=== PATIENT | female | born 1970 | race Caucasian/White ===

== ENCOUNTER 2017-08-04 11:05 | Observation (INO) | payer MEDICAID, SELFPAY ==
[2017-08-04] VITALS (11 sets, daily range): BP systolic 115–130; BP diastolic 70–95; PULSE 66–80; RESP 14–22; TEMP 36.5–36.8; O2SAT 97–99; BMI 36.6; BMI 35.7; BMI 35.8
--- NOTE | 2017-08-04 11:18 | EKG12_ITS ---
Test Reason : CHEST PAIN Blood Pressure : / mmHG Vent. Rate : 070 BPM Atrial Rate : 070 BPM P-R Int : 158 ms QRS Dur : 090 ms QT Int : 378 ms P-R-T Axes : 055 055 022 degrees QTc Int : 408 ms Normal sinus rhythm Normal ECG Confirmed by ROSALEE RODRIGUEZ, DOUGIE ([id number]), marketing editor KAYCEE GARCIA ([id number] on 08/10/2017 1:36:41 PM Referred By: AR/RU Confirmed By:DOUGIE TURK MD
--- NOTE | 2017-08-04 11:26 | RAD_ITS ---
STUDY: X-RAY CHEST REASON FOR EXAM: Female, 47 years old. Chest pain. TECHNIQUE: Single AP portable view of the chest. COMPARISON: Comparison is made with prior study dated December 02, 2015. FINDINGS: A right-sided portacatheter is seen with the tip at the junction of the superior vena cava and right atrium. EKG electrodes are seen. The lungs are clear and expanded. Scattered calcified granulomas. There is no demonstrated pleural abnormality. Normal size heart. Normal mediastinum and humberto. Normal visualized pulmonary arteries. Normal visualized aortic arch and descending thoracic aorta. Normal visualized thoracic spine. Normal visualized ribs, clavicles, and shoulders. There is no demonstrated abnormality of the visualized soft tissue structures of the upper abdomen. RAD/Chest 1 View (Portable) IMPRESSION: No acute abnormality is seen. Electronically Signed: Dalton Michel MD at 12:24 EDT Tel [phone], Service support ,
[2017-08-04 11:47] LABS: Absolute Lymphocyte Count 1.46 X10^3/ul (0.83-4.51); Absolute Neutrophil Count 2.7 X10^3/uL (2.0-7.7); Basophil# 0.02 X10^3/uL; Basophil% 0.4 % (0-1); Eosinophils% 2.2 % (0-5); Hematocrit 37.5 % (37-47); Hemoglobin 12.5 g/dl (12.0-15.0); Lymphocyte # 1.46 X10^3/ul (4.0); Lymphocyte % 32.5 % (19-41); Mean Corp Hgb Conc 33.3 g/gl (32-36); Mean Corpuscular Hgb 29.8 pg (27.0-32.0); Mean Corpuscular Volume 89.5 fL (81-99); Mean Platelet Vol. 10.5 fl (6.2-12.0); Monocyte# 0.22 X10^3/uL; Monocyte% 4.9 % (0-10); Neutrophil # 2.69 X10^3/uL (2.7-7.7); Platelet Count 159 K/mm3 (150-450); RBC Distribution Width CV 13.2 % (11.6-14.6); Red Blood Count 4.19 M/mm3 (4.2-5.4); White Blood Count 4.5 K/mm3 (4.4-11.0)
[2017-08-04 11:49] LABS: POSITIVE COUNT NO; POSITIVE DIFFERENTIAL NO; POSITIVE MORPHOLOGY NO
[2017-08-04 11:57] LABS: D-Dimer Quantitative (DVT/PE) 0.49 FEU/ug/m (0.27-0.49)
[2017-08-04 12:07] LABS: Anion Gap 4 (5-15); BUN 15 mg/dL (7-18); BUN/Creat Ratio 22.1 RATIO (10-20); Calcium,Total 8.7 mg/dL (8.5-10.1); Chloride 109 mmol/L (98-107); Creatinine, Serum 0.68 mg/dL (0.55-1.02); EST Glomerular Filtration Rate 99 mL/min (>60); Est Glom Filt Rate - Afr Amer 120 mL/min (>60); Estimated Creatinine Clearance 89.27 ml/min; Glucose 97 mg/dL (74-106); Potassium 3.6 mmol/L (3.5-5.1); Sodium Level 139 mmol/L (136-145)
--- NOTE | 2017-08-04 12:19 | ED.DCSUM_ITS ---
- ER Visit Summary Date of Service: 08/04/17 Chief Complaint: [Chest pain] History of Present Illness: The patient is a 47 F [presents to the emergency department chest discomfort that started around 10 AM. Patient described a stabbing pain in her left chest with some dullness and heaviness noted with it. Patient states the pain radiated to her left armpit and her left hand became numb and tingly. Patient felt short of breath and very sweaty with it. Patient has a history of hypertension and significant family history of heart disease as her father had an PR in his 50s. Patient denies recent travel or surgery. Physical Examination: [HEENT-PERRLA, EOMI. Cranial nerves II through XII grossly intact. TMs clear. Mucous membranes moist. No adenopathy. Cardiovascular-regular rate and rhythm without murmur or ectopy Lungs-clear to auscultation, chest wall stable without crepitus or subcu emphysema Abdomen-normoactive bowel sounds, soft, nontender, no rebound or rigidity, no peritoneal signs. Extremities-intact ?4, normal range of motion, normal pulses, atraumatic] Test Results: [EKG obtained on arrival showed a sinus rhythm with a ventricular rate of 70 bpm with no acute ST segment changes. CBC with differential was normal. Chemistries unremarkable. Troponin was less than 0.015. D-dimer was normal at 0.49. Chest x-ray showed nothing acute.] Emergency Department Course and Treatment: [Patient received aspirin in the emergency department and was given sublingual nitro which resolved her pain.] Treatment Plan: [Admit for further workup and evaluation of her chest pain] Disposition: [Admit] Impression: [Chest pain-rule out acute coronary syndrome] This note was generated with [email or web address] dictation software. It may contain incorrect words, spelling, and punctuation that were not noted in review of the chart prior to signing ED Disposition - Plan for ED Patient: Chief Complaint: Chest Pain Referrals: Cam Crane MD [Primary Care Provider] -
[2017-08-04] MEDS: Aspirin 81 MG TAB.CHEW 324 MG PO (12:37)
[2017-08-04] MEDS: 0.9% Normal Saline 1,000 ML 150 ML IV (12:38)
[2017-08-04] MEDS: 0.9 % NaCl (Sterile) Posiflush 10 mL IV (12:38)
--- NOTE | 2017-08-04 13:14 | PCM.HP.STD ---
Problem List (1) Chest pain Status: Acute Qualifiers: Chest pain type: unspecified Qualified Code(s): R07.9 - Chest pain, unspecified (2) Obesity (BMI 30-39.9) Status: Chronic (3) Tobacco abuse Status: Chronic (4) HTN (hypertension) Status: Chronic Qualifiers: Hypertension type: essential hypertension Qualified Code(s): I10 - Essential (primary) hypertension (5) HLD (hyperlipidemia) Status: Chronic Qualifiers: Hyperlipidemia type: unspecified Qualified Code(s): E78.5 - Hyperlipidemia, unspecified (6) Hemochromatosis Status: Chronic Qualifiers: Hemochromatosis type: unspecified Qualified Code(s): E83.119 - Hemochromatosis, unspecified History of Present Illness Date of Admission: 08/04/17 Chief Complaint: Chest pain The patient is a 47 y/o F w/ PMHx: HTN, HLD, Obesity, Tobacco use, Hemochromatosis who presents to the [facility] ED on 08/04/17 with onset of upper left sided chest dull ache and intermittent sharp stab sensation occurring at ~ 10 am while at work at the [employer] (no marked recent heavy exertion or lifting noted) with radiation into her armpit and LUE w/ LUE paresthesias, dyspnea, diaphoresis, nausea without emesis initially 5-7/10, resolved w/ NG administration. In the ED work-up included afebrile, heart rate 70, BP 124/88, respiratory rate 14, 99% on room air, unremarkable CBC with hemoglobin 12.5, d-dimer 0.49, BMP unremarkable, troponin less than 0.015, EKG with sinus rhythm with no acute evidence of ischemia, chest x-ray unremarkable. In the emergency room patient administered nitroglycerin, aspirin therapy, normal saline. Past Medical History Past Medical History (Chronic Problems): Chronic Problems Obesity (BMI 30-39.9) (Chronic) Tobacco abuse (Chronic) HTN (hypertension) (Chronic) HLD (hyperlipidemia) (Chronic) Hemochromatosis (Chronic) Allergies No Known Allergies Allergy (Verified 08/04/17 11:08) Home Medications: Ambulatory Orders Medication Instructions Recorded Ondansetron [Zofran Odt] 4 mg PO Q6H PRN PRN #15 tablet 12/02/15 Surgical History: - - Port placement. Psychiatric History: No pertinent psych hx IRON BENDER History: No pertinent IRON BENDER history Lives: Spouse/ Significant Other Smoking Status: Current every day smoker - 1/3-1/2 pack per day, cut down from prior. Tobacco Use: Cigarettes Alcohol: None Drugs: Marijuana - Rare, occasional cannabis. Review of Systems Constitutional: Reports: Fatigue. Denies: Chills, Fever, Weight Change HEENT: Denies: Head Aches, Sinus Congestion, Sinus Drainage Cardiovascular: Reports: Chest Pain. Denies: Palpitations Respiratory: Reports: Shortness of Breath, Shortness of breath at rest, Shortness of breath upon exertion. Denies: Cough, Sputum production Gastrointestinal: Reports: Nausea. Denies: Abdominal Pain, Vomiting Genitourinary: Denies: Dysuria Musculoskeletal: Denies: Joint Pain, Joint Tenderness Skin: Denies: Rash, Wounds Neurological: Denies: Numbness, Tingling, Focal weakness Psychiatric: Denies: Anxiety, Depression, Homicidal Ideations, Suicidal Ideations Hematologic/ Lymphatic: Reports: - - Hx hemochromatosis.. Denies: Easy Bruising, Easy Bleeding VTE Information - Inpt Only VTE Present on Admission: No VTE Mechan Device Prophylaxis: SCD's VTE Pharm Prophylaxis ordered?: Yes Patient Problems: Active and Suspected Problems Chest pain (Acute) Subjective: Seated upright in the ED bed, NAD, chest pain resolved, fatigued appearance. Objective: Physical Examination: General: awake, alert, oriented x 3 and cooperative, seated upright in the ED bed in no apparent distress. Skin: normal color, turgor, no icterus, cyanosis. HEENT: AT/NC, EOMI, PERRLA, mildly dry MM, no carotid bruits or JVD noted. Lungs: CTA bilaterally, moderate effort, mild decrease BL bases, no rales, ronchi or wheezing. Heart: Regular rate and rhythm; no gallop, rub audible. Abdomen: soft, obese, NTTP, ND, normal BS, no HSM. Extremities: no cyanosis, clubbing, or edema, RLE w/ brace in place, recent PCL injury s/p fall. Neurological: patient awake, alert, oriented x 3; cognitive function intact; pupils equally reactive to light and accomodation; cranial nerves II-XII grossly normal, moving all 4 extremities although expected limitations RLE s/p fall w/ PCL injury and brace in place, strength moderately globally decreased. Psychiatric: affect appears normal, no acute evidence of depressive or anxiety feelings. - Physical Exam Vital Signs Temp Pulse Resp BP Pulse Ox 98.2 F 75 14 119/95 H 99 08/04/17 11:06 08/04/17 12:47 08/04/17 12:47 08/04/17 12:47 08/04/17 12:47 Oxygen Delivery Method Room Air Weight: 213 lb 6.519 oz Body Mass Index (BMI) 36.6 Laboratory Tests Past 24 Hrs 08/04/17 08/04/17 08/04/17 11:40 11:40 11:40 WBC 4.5 RBC 4.19 L Hgb 12.5 Hct 37.5 MCV 89.5 MCH 29.8 MCHC 33.3 RDW 13.2 RDW Differential 43.0 Plt Count 159 MPV 10.5 Immature Gran % (Auto) 0.000 Neut % (Auto) 60.0 Lymph % (Auto) 32.5 [place] % (Auto) 4.9 Eos % (Auto) 2.2 Baso % (Auto) 0.4 Absolute Neuts (auto) 2.7 Absolute Lymphs (auto) 1.46 Total Counted Not Reportable D-Dimer Quant (PE/DVT) 0.49 Sodium 139 Potassium 3.6 Chloride 109 H Carbon Dioxide 26.0 Anion Gap 4 L BUN 15 Creatinine 0.68 Estim Creat Clear Calc 89.27 Est GFR (MDRD) Af Amer 120 Est GFR (MDRD) Non-Af 99 BUN/Creatinine Ratio 22.1 H Glucose 97 Calcium 8.7 Troponin I < 0.015 Assessment/Plan Active and Suspected Problems Chest pain (Acute) The patient is a 47 y/o F w/ PMHx: HTN, HLD, Obesity, Tobacco use, Hemochromatosis who presents to the [facility] ED on 08/04/17 with onset of upper left sided chest dull ache and intermittent sharp stab sensation occurring at ~ 10 am while at work at the [employer] with radiation into her armpit and LUE w/ LUE paresthesias, dyspnea, diaphoresis, nausea without emesis initially 5-7/10, resolved w/ NG administration. (1) Chest Pain: EKG in ED sinus rhythm with no acute evidence of ischemia, CXR w/ no acute findings, initial trop normal ?1. Will admit to PCU, place on a monitored bed to assure no acute myocardial infarction with serial cardiac enzymes and EKGs. Patient is unable to perform exercise thus will proceed with AM nuclear stress testing. ASA, NG, morphine. FLP in AM. Mag pending. (2) Hypertension: No regimen listed, BP normal in the ED, will monitor and add agent if above goal, PRN hydralazine. (3) Hyperlipidemia: Not on regimen. AM FLP, add if appropriate. (4) Morbid Obesity: Weight loss and lifestyle changes encouraged. (5) Tobacco Abuse: Encouraged cessation, inpatient consultation per RT, NR if desired. Patient is interested in long-term cessation and notes that she has been attempting to cut back as her recently had a CABG. (6) Hemochromatosis: Port in place, chronic blood draws, following w/ Dr. Moscoso, Hem/Onc. (7) Recent Fall, RLE PCL Injury: Recent fall on 07/01/17, following w/ Orthopedics, maintained in brace, full weight bearing allowed. (8) DVT prophylaxis: SCDs, lovenox. Code Visit OBSV E&M: 97556 Initial observation care L3
--- NOTE | 2017-08-04 13:31 | HP.PCM_ITS ---
Problem List (1) Chest pain Status: Acute Qualifiers: Chest pain type: unspecified Qualified Code(s): R07.9 - Chest pain, unspecified (2) Obesity (BMI 30-39.9) Status: Chronic (3) Tobacco abuse Status: Chronic (4) HTN (hypertension) Status: Chronic Qualifiers: Hypertension type: essential hypertension Qualified Code(s): I10 - Essential (primary) hypertension (5) HLD (hyperlipidemia) Status: Chronic Qualifiers: Hyperlipidemia type: unspecified Qualified Code(s): E78.5 - Hyperlipidemia , unspecified (6) Hemochromatosis Status: Chronic Qualifiers: Hemochromatosis type: unspecified Qualified Code(s): E83.119 - Hemochromatosis, unspecified History of Present Illness Date of Admission: 08/04/17 Chief Complaint: Chest pain The patient is a 47 y/o F w/ PMHx: HTN, HLD, Obesity, Tobacco use, Hemochromatosis who presents to the [facility] ED on 08/04/17 with onset of upper left sided chest dull ache and intermittent sharp stab sensation occurring at ~ 10 am while at work at the [employer] (no marked recent heavy exertion or lifting noted) with radiation into her armpit and LUE w/ LUE paresthesias, dyspnea, diaphoresis, nausea without emesis initially 5-7/10, resolved w/ NG administration. In the ED work-up included afebrile, heart rate 70, BP 124/88, respiratory rate 14, 99% on room air, unremarkable CBC with hemoglobin 12.5, d- dimer 0.49, BMP unremarkable, troponin less than 0.015, EKG with sinus rhythm with no acute evidence of ischemia, chest x-ray unremarkable. In the emergency room patient administered nitroglycerin, aspirin therapy, normal saline. Past Medical History Past Medical History (Chronic Problems): Chronic Problems Obesity (BMI 30-39.9) (Chronic) Tobacco abuse (Chronic) HTN (hypertension) (Chronic) HLD (hyperlipidemia) (Chronic) Hemochromatosis (Chronic) Allergies No Known Allergies Allergy (Verified 08/04/17 11:08) Home Medications: Ambulatory Orders Medication Instructions Recorded Ondansetron [Zofran Odt] 4 mg PO Q6H PRN PRN #15 tablet 12/02/15 Surgical History: - - Port placement. Psychiatric History: No pertinent psych hx EDUCATIONAL AIDE History: No pertinent EDUCATIONAL AIDE history Lives: Spouse/ Significant Other Smoking Status: Current every day smoker - 1/3-1/2 pack per day, cut down from prior. Tobacco Use: Cigarettes Alcohol: None Drugs: Marijuana - Rare, occasional cannabis. Review of Systems Constitutional: Reports: Fatigue. Denies: Chills, Fever, Weight Change HEENT: Denies: Head Aches, Sinus Congestion, Sinus Drainage Cardiovascular: Reports: Chest Pain. Denies: Palpitations Respiratory: Reports: Shortness of Breath, Shortness of breath at rest, Shortness of breath upon exertion. Denies: Cough, Sputum production Gastrointestinal: Reports: Nausea. Denies: Abdominal Pain, Vomiting Genitourinary: Denies: Dysuria Musculoskeletal: Denies: Joint Pain, Joint Tenderness Skin: Denies: Rash, Wounds Neurological: Denies: Numbness, Tingling, Focal weakness Psychiatric: Denies: Anxiety, Depression, Homicidal Ideations, Suicidal Ideations Hematologic/ Lymphatic: Reports: - - Hx hemochromatosis.. Denies: Easy Bruising , Easy Bleeding VTE Information - Inpt Only VTE Present on Admission: No VTE Mechan Device Prophylaxis: SCD's VTE Pharm Prophylaxis ordered?: Yes Patient Problems: Active and Suspected Problems Chest pain (Acute) Subjective: Seated upright in the ED bed, NAD, chest pain resolved, fatigued appearance. Objective: Physical Examination: General: awake, alert, oriented x 3 and cooperative, seated upright in the ED bed in no apparent distress. Skin: normal color, turgor, no icterus, cyanosis. HEENT: AT/NC, EOMI, PERRLA, mildly dry MM, no carotid bruits or JVD noted. Lungs: CTA bilaterally, moderate effort, mild decrease BL bases, no rales, ronchi or wheezing. Heart: Regular rate and rhythm; no gallop, rub audible. Abdomen: soft, obese, NTTP, ND, normal BS, no HSM. Extremities: no cyanosis, clubbing, or edema, RLE w/ brace in place, recent PCL injury s/p fall. Neurological: patient awake, alert, oriented x 3; cognitive function intact; pupils equally reactive to light and accomodation; cranial nerves II-XII grossly normal, moving all 4 extremities although expected limitations RLE s/p fall w/ PCL injury and brace in place, strength moderately globally decreased. Psychiatric: affect appears normal, no acute evidence of depressive or anxiety feelings. - Physical Exam Vital Signs Temp Pulse Resp BP Pulse Ox 98.2 F 75 14 119/95 H 99 08/04/17 11:06 08/04/17 12:47 08/04/17 12:47 08/04/17 12:47 08/04/17 12:47 Oxygen Delivery Method Room Air Weight: 213 lb 6.519 oz Body Mass Index (BMI) 36.6 Laboratory Tests Past 24 Hrs 08/04/17 08/04/17 08/04/17 11:40 11:40 11:40 WBC 4.5 RBC 4.19 L Hgb 12.5 Hct 37.5 MCV 89.5 MCH 29.8 MCHC 33.3 RDW 13.2 RDW Differential 43.0 Plt Count 159 MPV 10.5 Immature Gran % (Auto) 0.000 Neut % (Auto) 60.0 Lymph % (Auto) 32.5 [place] % (Auto) 4.9 Eos % (Auto) 2.2 Baso % (Auto) 0.4 Absolute Neuts (auto) 2.7 Absolute Lymphs (auto) 1.46 Total Counted Not Reportable D-Dimer Quant (PE/DVT) 0.49 Sodium 139 Potassium 3.6 Chloride 109 H Carbon Dioxide 26.0 Anion Gap 4 L BUN 15 Creatinine 0.68 Estim Creat Clear Calc 89.27 Est GFR (MDRD) Af Amer 120 Est GFR (MDRD) Non-Af 99 BUN/Creatinine Ratio 22.1 H Glucose 97 Calcium 8.7 Troponin I < 0.015 Assessment/Plan Active and Suspected Problems Chest pain (Acute) The patient is a 47 y/o F w/ PMHx: HTN, HLD, Obesity, Tobacco use, Hemochromatosis who presents to the [facility] ED on 08/04/17 with onset of upper left sided chest dull ache and intermittent sharp stab sensation occurring at ~ 10 am while at work at the [employer] with radiation into her armpit and LUE w/ LUE paresthesias, dyspnea, diaphoresis, nausea without emesis initially 5-7/10, resolved w/ NG administration. (1) Chest Pain: EKG in ED sinus rhythm with no acute evidence of ischemia, CXR w / no acute findings, initial trop normal ?1. Will admit to PCU, place on a monitored bed to assure no acute myocardial infarction with serial cardiac enzymes and EKGs. Patient is unable to perform exercise thus will proceed with AM nuclear stress testing. ASA, NG, morphine. FLP in AM. Mag pending. (2) Hypertension: No regimen listed, BP normal in the ED, will monitor and add agent if above goal, PRN hydralazine. (3) Hyperlipidemia: Not on regimen. AM FLP, add if appropriate. (4) Morbid Obesity: Weight loss and lifestyle changes encouraged. (5) Tobacco Abuse: Encouraged cessation, inpatient consultation per RT, NR if desired. Patient is interested in long-term cessation and notes that she has been attempting to cut back as her recently had a CABG. (6) Hemochromatosis: Port in place, chronic blood draws, following w/ Dr. Moscoso, Hem/Onc. (7) Recent Fall, RLE PCL Injury: Recent fall on 07/01/17, following w/ Orthopedics, maintained in brace, full weight bearing allowed. (8) DVT prophylaxis: SCDs, lovenox. Code Visit OBSV E&M: [id number] Initial observation care L3
--- NOTE | 2017-08-04 13:57 | EKG12_ITS ---
Test Reason : ADMISSION Blood Pressure : / mmHG Vent. Rate : 061 BPM Atrial Rate : 061 BPM P-R Int : 172 ms QRS Dur : 090 ms QT Int : 414 ms P-R-T Axes : 048 054 028 degrees QTc Int : 416 ms Normal sinus rhythm Normal ECG Confirmed by ROSALEE RODRIGUEZ, DOUGIE ([id number]), content editor KAYCEE GARCIA ([id number]) on 08/10/2017 3:21:16 PM Referred By: SANTINO Confirmed By:DOUGIE TURK MD
[2017-08-04 14:14] LABS: Magnesium 1.9 mg/dL (1.6-2.6)
[2017-08-04] MEDS: 0.9% Normal Saline 1,000 ML 100 ML IV (15:57)
[2017-08-04] MEDS: Famotidine 20 MG Tablet PO (21:38)
[2017-08-05] VITALS (7 sets, daily range): BP systolic 118–138; BP diastolic 74–88; PULSE 55–62; RESP 14–16; TEMP 36.2–36.6; O2SAT 96–99
[2017-08-05] MEDS: 0.9% Normal Saline 1,000 ML 100 ML IV (01:57)
[2017-08-05] MEDS: 0.9% NaCl Peripheral Flush Adult/Peds IV (04:40)
[2017-08-05 04:54] LABS: Hematocrit 35.8 % (37-47); Hemoglobin 12.1 g/dl (12.0-15.0); Mean Corp Hgb Conc 33.8 g/gl (32-36); Mean Corpuscular Hgb 30.9 pg (27.0-32.0); Mean Corpuscular Volume 91.6 fL (81-99); Mean Platelet Vol. 10.7 fl (6.2-12.0); Platelet Count 137 K/mm3 (150-450); RBC Distribution Width CV 12.8 % (11.6-14.6); RBC Distribution Width SD 42.4 fl (35.1-43.9); Red Blood Count 3.91 M/mm3 (4.2-5.4); White Blood Count 3.7 K/mm3 (4.4-11.0)
[2017-08-05 04:58] LABS: Scan Indicated on CBC? Y/N NO
[2017-08-05 05:03] LABS: International Normalized Ratio 1.1; Prothrombin Time (Protime)PT. 13.8 SECONDS (11.7-14.9)
[2017-08-05 05:04] LABS: Partial Thromboplast Time 33.6 Seconds (24.1-36.2)
[2017-08-05 05:08] LABS: Anion Gap 5 (5-15); BUN 13 mg/dL (7-18); BUN/Creat Ratio 23.2 RATIO (10-20); Chloride 111 mmol/L (98-107); Cholesterol 185 mg/dL (200); Creatinine, Serum 0.56 mg/dL (0.55-1.02); EST Glomerular Filtration Rate 124 mL/min (>60); Est Glom Filt Rate - Afr Amer 150 mL/min (>60); Glucose 93 mg/dL (74-106); High Density Lipoprotein 26 mg/dL; Potassium 3.8 mmol/L (3.5-5.1); Sodium Level 142 mmol/L (136-145); Triglycerides 116 mg/dL; Very Low Density Lipoprotein 23 mg/dL (5-40)
[2017-08-05] MEDS: Aspirin E.C. 81 MG Tablet PO (05:38)
--- NOTE | 2017-08-05 05:55 | EKG12_ITS ---
Test Reason : AM EKG Blood Pressure : / mmHG Vent. Rate : 063 BPM Atrial Rate : 063 BPM P-R Int : 156 ms QRS Dur : 092 ms QT Int : 408 ms P-R-T Axes : 056 069 038 degrees QTc Int : 417 ms Normal sinus rhythm Normal ECG Confirmed by ROSALEE RODRIGUEZ, DOUGIE ([id number]), editor at large KAYCEE AGRCIA ([id number] on 08/10/2017 2:53:40 PM Referred By: SANTINO Confirmed By:DOUGIE TURK MD
--- NOTE | 2017-08-05 10:24 | DCINST_ITS ---
- Discharge Diagnoses Current Active Problems: Current Active and Chronic Problems Obesity (BMI 30-39.9) (Chronic) Tobacco abuse (Chronic) HTN (hypertension) (Chronic) HLD (hyperlipidemia) (Chronic) Hemochromatosis (Chronic) Chest pain (Acute) You will use the following diet at home:: Cardiac Discharge Activity: Return to Normal Activity Call your doctor if you observe: Shortness of breath, Dizziness, Fainting spells , Chest pain, Increased palpitations (irregular heartbeat) Allergies/Adverse Reactions: Allergies No Known Allergies Allergy (Verified 08/04/17 11:08) Medications to take at Discharge Folic Acid 1 mg PO DAILY@0800 08/04/17 Lisinopril [Zestril] 10 mg PO DAILY 08/04/17 Omeprazole [Prilosec] 20 mg PO DAILY 08/04/17 Primary Care Physician: Cam Crane MD [Primary Care Provider] - Please follow up with your Primary Care Physician in: 1 Week Proposed Discharge Date: 08/05/17
--- NOTE | 2017-08-05 10:24 | PCM.DC.SUM ---
Discharge Date and Diagnosis Date of Admission: 08/04/17 Date of Discharge: 08/05/17 - Primary Discharge Diagnosis Active and Suspected Problems 1. Musculoskeletal chest pain 2. Hypertension 3. Tobacco abuse 4. Hemochromatosis 5. Obesity - Secondary Discharge Diagnosis Chronic Problems Obesity (BMI 30-39.9) (Chronic) Tobacco abuse (Chronic) HTN (hypertension) (Chronic) HLD (hyperlipidemia) (Chronic) Hemochromatosis (Chronic) Hospital Course and Treatment Imaging Results: Diagnostic Data Chest X-Ray 08/04/17 11:26 IMPRESSION: No acute abnormality is seen. Electronically Signed: Dalton Michel MD at 12:24 EDT Tel [phone], Service support , Operations: None Procedures: Stress test Summary of Care Provided: The patient is a 47 year old F admitted 08/04/17 due to chest pain. She has a past medical history of HTN, HLD, obesity, tobacco dependence, hemochromatosis, GERD. Chest x-ray unremarkable. Troponin negative. EKG without evidence of ischemia. Patient underwent nuclear stress test which was negative for ischemia. Patient has not had further chest pain, left upper extremity pain. 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 Feel chest pain is musculoskeletal in nature. Fasting lipid panel showed cholesterol 185, LDL 136, LDL 23, HDL 26. Recommend further monitoring and follow-up by primary care physician. Other chronic medical conditions as noted above are stable at this time. Smoking cessation was advised. Patient seen exam prior to discharge. Heart rate regular in rhythm, mild bradycardia with a heart rate of 58. No murmur. Lungs clear. Abdomen soft, nontender. Neuro grossly intact. Vital signs stable. Patient stable for discharge home with further follow-up as noted above. This patient was seen by JONI Nath under the supervision of Dr. Guadarrama. Discharge Diet: Low fat/ Low Cholesterol Discharge Activity: Return to Normal Activity Call your doctor if you observe: Shortness of breath, Dizziness, Fainting spells, Chest pain, Increased palpitations (irregular heartbeat) Home Medications: Medications to take at Discharge Folic Acid 1 mg PO DAILY@0800 08/04/17 Lisinopril [Zestril] 10 mg PO DAILY 08/04/17 Omeprazole [Prilosec] 20 mg PO DAILY 08/04/17 Primary Care Physician: Cam Crane MD [Primary Care Provider] - Please follow up with your Primary Care Physician in: 1 Week Disposition: Home Minutes spent on discharge:: 35 Patient Condition:: Stable Medical Necessity - Tobacco Use Smoking Status: Current every day smoker Tobacco Use: Cigarettes Meaningful Use Info Meaningful Use Diagnoses (Choose all that apply): None applicable
--- NOTE | 2017-08-05 10:32 | DS.PCM_ITS ---
Discharge Date and Diagnosis Date of Admission: 08/04/17 Date of Discharge: 08/05/17 - Primary Discharge Diagnosis Active and Suspected Problems 1. Musculoskeletal chest pain 2. Hypertension 3. Tobacco abuse 4. Hemochromatosis 5. Obesity - Secondary Discharge Diagnosis Chronic Problems Obesity (BMI 30-39.9) (Chronic) Tobacco abuse (Chronic) HTN (hypertension) (Chronic) HLD (hyperlipidemia) (Chronic) Hemochromatosis (Chronic) Hospital Course and Treatment Imaging Results: Diagnostic Data Chest X-Ray 08/04/17 11:26 IMPRESSION: No acute abnormality is seen. Electronically Signed: Dalton Michel MD at 12:24 EDT Tel [phone], Service support , Operations: None Procedures: Stress test Summary of Care Provided: The patient is a 47 year old F admitted 08/04/17 due to chest pain. She has a past medical history of HTN, HLD, obesity, tobacco dependence, hemochromatosis, GERD. Chest x-ray unremarkable. Troponin negative. EKG without evidence of ischemia. Patient underwent nuclear stress test which was negative for ischemia. Patient has not had further chest pain, left upper extremity pain. 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 Feel chest pain is musculoskeletal in nature. Fasting lipid panel showed cholesterol 185, LDL 136, LDL 23, HDL 26. Recommend further monitoring and follow-up by primary care physician. Other chronic medical conditions as noted above are stable at this time. Smoking cessation was advised. Patient seen exam prior to discharge. Heart rate regular in rhythm, mild bradycardia with a heart rate of 58. No murmur. Lungs clear. Abdomen soft, nontender. Neuro grossly intact. Vital signs stable. Patient stable for discharge home with further follow-up as noted above. This patient was seen by JONI Nath under the supervision of Dr. Guadarrama. Discharge Diet: Low fat/ Low Cholesterol Discharge Activity: Return to Normal Activity Call your doctor if you observe: Shortness of breath, Dizziness, Fainting spells , Chest pain, Increased palpitations (irregular heartbeat) Home Medications: Medications to take at Discharge Folic Acid 1 mg PO DAILY@0800 08/04/17 Lisinopril [Zestril] 10 mg PO DAILY 08/04/17 Omeprazole [Prilosec] 20 mg PO DAILY 08/04/17 Primary Care Physician: Cam Crane MD [Primary Care Provider] - Please follow up with your Primary Care Physician in: 1 Week Disposition: Home Minutes spent on discharge:: 35 Patient Condition:: Stable Medical Necessity - Tobacco Use Smoking Status: Current every day smoker Tobacco Use: Cigarettes Meaningful Use Info Meaningful Use Diagnoses (Choose all that apply): None applicable
[2017-08-05] MEDS: Famotidine 20 MG Tablet PO (12:15)
--- NOTE | 2017-08-05 12:32 | STRESSREP ---
Stress Test Report Date: 08/05/2017 Procedure: Pharmacologic stress nuclear imaging study Indications: Chest pain Consent: Per the patient Procedure: The patient underwent pharmacologic (Regadenoson) evaluation with a peak heart rate of 86 beats per minute (49 predicted maximal heart rate) and a peak blood pressure of 146/86 mmHg. The baseline ECG demonstrated sinus bradycardia. The peak pharmacologic ECG demonstrated no obvious ECG changes. There were no cardiac dysrhythmias pretest, during pharmacologic infusion, or recovery. There was no complaint of chest discomfort during pharmacologic infusion or recovery. The examination was discontinued secondary to completion of protocol. Impression: 1. Pharmacologic (Regadenoson) evaluation 2. Peak pharmacologic ECG with no obvious ECG changes. 3. No cardiac dysrhythmias pretest, during pharmacologic infusion, or recovery 4. Nuclear images pending Myocardial perfusion imaging study: Technique: The patient was injected with 14.1 millicuries of technetium 99m Cardiolite and subsequently rest SPECT Cardiolite nuclear imaging was obtained in the horizontal long, vertical long, and short axis views. The patient underwent pharmacologic (Regadenoson) evaluation with a peak heart rate of 86 beats per minute (49 % percent predicted maximal heart rate) and a peak blood pressure of 146/86 mmHg. The patient was injected with 44.3 millicuries of technetium 99m Cardiolite and subsequently stress SPECT Cardiolite nuclear imaging was obtained in the horizontal long, vertical long, and short axis views. A gated Cardiolite study at peak stress was obtained. Interpretation: Rest and stress SPECT Cardiolite nuclear imaging status post realignment, normalization, and attenuation correction demonstrate significant extracardiac/gastrointestinal tracer uptake especially near the inferior segments and otherwise appears to demonstrate relative uniform tracer uptake and myocardial perfusion appearing within normal limits. There is end systolic thickening and brightening. The gated Cardiolite study demonstrates myocardial thickening and inward wall motion. The reported LVEF is 62 %. Impression: 1. Rest and stress SPECT Cardiolite nuclear imaging demonstrate relative uniform tracer uptake and myocardial perfusion appearing within normal limits. 2. The gated Cardiolite study reports an LVEF of 62 %. This note was generated with [employer] software. It may contain incorrect words, spelling, and punctuation that were not noted in checking the note before signing.
--- NOTE | 2017-08-05 12:39 | STRESSREP_ITS ---
Stress Test Report Date: 08/05/2017 Procedure: Pharmacologic stress nuclear imaging study Indications: Chest pain Consent: Per the patient Procedure: The patient underwent pharmacologic (Regadenoson) evaluation with a peak heart rate of 86 beats per minute (49 predicted maximal heart rate) and a peak blood pressure of 146/86 mmHg. The baseline ECG demonstrated sinus bradycardia. The peak pharmacologic ECG demonstrated no obvious ECG changes. There were no cardiac dysrhythmias pretest, during pharmacologic infusion, or recovery. There was no complaint of chest discomfort during pharmacologic infusion or recovery. The examination was discontinued secondary to completion of protocol. Impression: 1. Pharmacologic (Regadenoson) evaluation 2. Peak pharmacologic ECG with no obvious ECG changes. 3. No cardiac dysrhythmias pretest, during pharmacologic infusion, or recovery 4. Nuclear images pending Myocardial perfusion imaging study: Technique: The patient was injected with 14.1 millicuries of technetium 99m Cardiolite and subsequently rest SPECT Cardiolite nuclear imaging was obtained in the horizontal long, vertical long, and short axis views. The patient underwent pharmacologic (Regadenoson) evaluation with a peak heart rate of 86 beats per minute (49 % percent predicted maximal heart rate) and a peak blood pressure of 146/86 mmHg. The patient was injected with 44.3 millicuries of technetium 99m Cardiolite and subsequently stress SPECT Cardiolite nuclear imaging was obtained in the horizontal long, vertical long, and short axis views. A gated Cardiolite study at peak stress was obtained. Interpretation: Rest and stress SPECT Cardiolite nuclear imaging status post realignment, normalization, and attenuation correction demonstrate significant extracardiac/ gastrointestinal tracer uptake especially near the inferior segments and otherwise appears to demonstrate relative uniform tracer uptake and myocardial perfusion appearing within normal limits. There is end systolic thickening and brightening. The gated Cardiolite study demonstrates myocardial thickening and inward wall motion. The reported LVEF is 62 %. Impression: 1. Rest and stress SPECT Cardiolite nuclear imaging demonstrate relative uniform tracer uptake and myocardial perfusion appearing within normal limits. 2. The gated Cardiolite study reports an LVEF of 62 %. This note was generated with [employer] software. It may contain incorrect words, spelling, and punctuation that were not noted in checking the note before signing.
[2017-08-05] MEDS: 0.9% NaCl VAD Flush 10 ML IV (13:26)
== END 2017-08-05 10:24 | disposition home or self-care (01) ==
LOC: ED 13:03 → PCU 13:52
PROVIDERS: Admitting Provider Family Medicine; Emergency Provider Emergency Medicine; Family Provider Family Medicine; PCP Family Medicine; Visit Provider Internal Medicine
DX: R07.89 Other chest pain (principal); I10 Essential (primary) hypertension; Z68.35 Body mass index [BMI] 35.0-35.9, adult; Z71.3 Dietary counseling and surveillance; E83.119 Hemochromatosis, unspecified; E78.5 Hyperlipidemia, unspecified; K21.9 Gastro-esophageal reflux disease without esophagitis; F17.210 Nicotine dependence, cigarettes, uncomplicated; E66.01 Morbid (severe) obesity due to excess calories; R06.02 Shortness of breath; Z79.899 Other long term (current) drug therapy
CPT/HCPCS: 71045; 78452; 80048; 80061; 83735; 84484; 85025; 85027; 85379; 85610; 85730; 93005; 93017; 96361; 96374; 99218; 99284; A9500; J7030; J7040; A4216; G0378; J2785

== ENCOUNTER → 2020-01-08 10:47 | Outpatient (CLI) | payer OTHER, SELFPAY ==
[2019-04-19 15:28] VITALS: BMI 32.6
== END ==
PROVIDERS: PCP Family Medicine; Referring Provider Family Medicine; Visit Provider Family Medicine
DX: Z03.818 Encounter for observation for suspected exposure to other biological agents ruled out (principal)
CPT/HCPCS: 87635; C9803; U0003

== ENCOUNTER 2020-08-13 09:58 | Observation (INO) | payer OTHER, SELFPAY ==
[2019-04-19 15:28] VITALS: BMI 32.6
[2020-08-13] VITALS (13 sets, daily range): BP systolic 102–142; BP diastolic 63–99; PULSE 56–76; RESP 11–16; TEMP 36.1–36.8; O2SAT 95–100; BMI 32.3; BMI 34.8
--- NOTE | 2020-08-13 10:05 | EKG12_ITS ---
Test Reason : CP Blood Pressure : / mmHG Vent. Rate : 074 BPM Atrial Rate : 074 BPM P-R Int : 150 ms QRS Dur : 084 ms QT Int : 380 ms P-R-T Axes : 047 061 045 degrees QTc Int : 421 ms Normal sinus rhythm Normal ECG Confirmed by SHELLY RODRIGUEZ, KULDEEP ([id number]), general expeditor JAKE BLUE ([id number]) on 08/14/2020 12:49:30 PM Referred By: RAMBO/CHRISTY Confirmed By:DUTCH BRAVO MD
--- NOTE | 2020-08-13 10:07 | EDS_ITS ---
HPI History of Present Illness Chief Complaint: Chest Pain Detail of Chief Complaint: Chest pain that started around 5:30 AM Informant: patient Onset/Context/Timing Current Severity: 09/20 Worsened By: Nothing Associated Symptoms: Positive for Dyspnea Narrative Narrative: Patient states that she woke up this morning with chest discomfort. She describes it as a dull ache that radiates into her neck and down her left arm. She has had similar pains in the past and 4 years ago had a stress test that was normal. Patient states that she does not get this very often. She states that her father had heart trouble but she is not sure what age. Patient has history of hypertension as well as high cholesterol and she is a smoker. Patient has history of hemochromatosis. She herself is never had heart trouble and does not have any stents. Patient denies recent travel or surgery. She has had both doses of Covid vaccine. She denies cough or fever or recent illness. She denies recent travel or surgery. Prior Similar Symptoms: Yes CVD Risk Factors: Positive for Hypertension, Hypercholesterolemia, Family History 1' </=55 and Smoking [facility] Medical History (Updated 08/13/20 @ 10:[address] Tan David, ) Gastroesophageal reflux disease without esophagitis Hemochromatosis Hypertension PORT PLACEMENT Home Medications folic acid 1 mg PO DAILY@0800 08/04/17 [History Last Taken 08/04/17] lisinopril 10 mg PO DAILY 08/04/17 [History Last Taken 08/04/17] omeprazole 20 mg PO DAILY 08/04/17 [History Last Taken 08/04/17] hydroxyzine HCl 25 mg PO Q4H PRN 04/17/19 [History Last Taken Unknown] escitalopram oxalate 10 mg PO DAILY 08/13/20 [History Last Taken Unknown] Allergy/AdvReac Type Severity Reaction Status Date / Time No Known Allergies Allergy Verified 08/13/20 10:03 Family History (Updated 04/19/19 @ 15:23 by Shawna Warner) Father Hemochromatosis Hypertension Mother Hypertension Aunt Hemochromatosis Uncle Hemochromatosis Surgical History History of tonsillectomy History of tubal ligation Social History Smoking Status: Current every day smoker tobacco type: cigarettes ROS ROS ED Review of Systems ROS Unobtainable: other Constitutional Constitutional ED: Reports lethargy; Denies chills, fever(s), sweats or weight loss Eyes Eyes: Denies blurry vision, change in vision or diplopia ENT ENT ED: Denies rhinorrhea or sore throat Cardiovascular Cardiovascular: Reports chest pain; Denies orthopnea or racing heartbeat Respiratory/Chest Respiratory/Chest: Reports dyspnea and dyspnea on exertion; Denies cough, orthopnea or sputum Gastrointestinal Gastrointestinal: Denies abdominal pain, diarrhea, nausea or vomiting Genitourinary Genitourinary ED: Denies dysuria, hematuria or urinary frequency Musculoskeletal Musculoskeletal: Denies arthralgias, back pain, myalgias or neck pain Integumentary Denies abscess, Abrasions or rash Neurologic Neurologic: Denies headache(s) or weakness Psychiatric Psychiatric: Denies anxiety, depression or suicidal thoughts Endocrine Endocrinology: Denies polydipsia, polyphagia or polyuria Hematologic/Lymphatic Hematologic/Lymphatic: Denies easy bleeding, easy bruising or lymphadenopathy Allergic/Immunologic Allergic/Immunologic ED: Denies mouth swelling, tongue swelling or urticaria EXAM Physical Exam Const Vital Signs: 08/13/20 09:59 08/13/20 10:13 08/13/20 10:20 Temperature 98.2 F Temperature Source Oral Pulse Rate 72 76 Respiratory Rate 11 L Respiratory Effort Normal Non-Labored Respiratory Pattern Normal Blood Pressure 142/82 H 115/79 Blood Pressure Mean 102 Pulse Ox 100 Oxygen Delivery Method Room Air Room Air 08/13/20 10:28 08/13/20 10:33 Temperature Temperature Source Pulse Rate 73 74 Respiratory Rate Respiratory Effort Respiratory Pattern Blood Pressure 120/99 H 110/76 Blood Pressure Mean Pulse Ox Oxygen Delivery Method Positive well nourished and well developed General Appearance ED: well developed and NAD HEENT Reports TM's clear and moist mucous membranes normocephalic and atraumatic; Negative for trauma or tenderness Tympanic Membrane ED: Yes TM's clear Eyes PERRL and EOMs intact bilaterally General Eye ED: Negative for pale conjunctiva or scleral icterus Neck no lymphadenopathy, supple and no JVD General: Negative for tenderness Chest Wall inspection of chest normal and palpation of chest normal Chest: Negative for tenderness Resp normal respiratory effort and clear to auscultation bilaterally Effort and Inspection: Negative for respiratory distress or pain with movement Auscultation: Negative for rhonchi, wheezes or diminished lung sounds Cardio regular rate, regular rhythm, S1 normal heart sound, S2 normal heart sound and no murmurs Peripheral Pulses: pulses 2+ throughout GI normal to inspection, nondistended, normoactive bowel sounds, soft to palpation, non-tender, non-distended and no masses Back/Spine no CVA tenderness and no thoracic nor lumbar tenderness Extremity normal to inspection General Extremety ED: Negative for edema General Extremity: Negative for edema Neuro oriented x3, CN's II-XII intact bilaterally, no sensory deficits noted and gait normal Sensorium / Orientation: awake, alert, oriented to person, oriented to place and oriented to time Motor Exam: strength 5/5 throughout and strength abnormal Psych mental status grossly normal Skin no rashes or lesions noted and no wounds Heart Score History: Highly Suspicious ECG: Normal Age: >45 - <65 years Risk Factors: >/= 3 Risk Factors or History of CAD Troponin: </= Normal Limit Score: 5 MDM MDM MDM Narrative Medical decision making narrative: Patient had good improvement in her chest pain with nitroglycerin. She was given an inch of Nitropaste to the anterior chest wall. Patient will be admitted for further work-up of her chest pain. She has a heart score 5. Lab Data Attestation: I reviewed the patient's lab results. Labs: Laboratory Results - last 24 hr 08/13/20 08/13/20 08/13/20 10:05 10:05 10:05 WBC 5.7 RBC 5.08 Hgb 12.6 Hct 40.3 MCV 79.3 L MCH 24.8 L MCHC 31.3 L RDW Std Deviation 53.8 H RDW Coeff of Skip 19.4 H Plt Count 236 MPV 10.7 Immature Gran % (Auto) 0.400 Neut % (Auto) 52.6 Lymph % (Auto) 39.0 [place] % (Auto) 6.0 Eos % (Auto) 0.9 Baso % (Auto) 1.1 H Absolute Neuts (auto) 3.0 Absolute Lymphs (auto) 2.21 Nucleated RBC % 0 D-Dimer Quant (PE/DVT) 0.46 Sodium 138 Potassium 3.9 Chloride 107 Carbon Dioxide 26.0 Anion Gap 5 BUN 13 Creatinine 0.79 Estim Creat Clear Calc 83.77 Est GFR (MDRD) Af Amer 100 Est GFR (MDRD) Non-Af 82 BUN/Creatinine Ratio 16.5 Glucose 102 Calcium 9.1 Troponin I < 0.015 Radiography Chest X-Ray - ED: 1 View Diagnostic Testin view chest x-ray interpreted by myself as no acute disease process. Official report from radiology pending. EKG Initial EKG: Comments: Patient EKG shows a sinus rhythm with a ventricular rate of 74 bpm with no acute ST segment changes noted. Discharge Plan Triage Chief Complaint: Chest Pain ED Provider: Tan David Dx/Rx/DC Orders Clinical Impression: Chest pain Prescriptions: No Action lisinopril 10 MG tablet 10 mg PO DAILY RF: 0 omeprazole 20 MG capsule 20 mg PO DAILY RF: 0 folic acid 1 MG tablet 1 mg PO DAILY@0800 RF: 0 hydroxyzine HCl 25 MG tablet 25 mg PO Q4H PRN (Reason: Anxiety) RF: 0 escitalopram oxalate 10 mg tablet 10 mg PO DAILY RF: 0 Primary Care Provider: Cam Crane Referrals: Cam Crane MD [Primary Care Provider] - Disposition Disposition: Acute Care Hospital [facility]
[2020-08-13 10:14] LABS: Absolute Lymphocyte Count 2.21 X10^3/uL (0.83-4.51); Basophil# 0.06 X10^3/uL; Basophil% 1.1 % (0-1); Eosinophil# 0.05 X10^3/uL; Eosinophils% 0.9 % (0-5); Hematocrit 40.3 % (37-47); Hemoglobin 12.6 g/dL (12.0-15.0); Lymphocyte # 2.21 X10^3/ul (0.83-4.51); Mean Corp Hgb Conc 31.3 g/dL (32-36); Mean Corpuscular Hgb 24.8 pg (27.0-32.0); Mean Corpuscular Volume 79.3 fL (81-99); Mean Platelet Vol. 10.7 fl (6.2-12.0); Monocyte# 0.34 X10^3/uL; NRBC Flagged by Analyzer 0 % (0-5); Neutrophil # 2.99 X10^3/uL (2.7-7.7); Neutrophil % 52.6 % (47-70); Platelet Count 236 K/mm3 (150-450); RBC Distribution Width CV 19.4 % (11.6-14.6); RBC Distribution Width SD 53.8 fl (35.1-43.9); Red Blood Count 5.08 M/mm3 (4.2-5.4); White Blood Count 5.7 K/mm3 (4.4-11.0)
[2020-08-13] MEDS: Aspirin 81 MG TAB.CHEW 324 MG PO (10:19)
[2020-08-13] MEDS: 0.9% Normal Saline 1,000 ML 150 ML IV ×3 (10:19→23:20)
[2020-08-13] MEDS: Nitroglycerin SL (ED/IMG/CATH) 0.4 MG TABLET SL ×3 (10:20→10:33)
--- NOTE | 2020-08-13 10:20 | RAD_ITS ---
STUDY: X-RAY CHEST REASON FOR EXAM: Female, 50 years old. Chest pain that started this morning. TECHNIQUE: Single AP portable view of the chest. COMPARISON: Comparison is made with prior examination dated 08/04/2017. FINDINGS: A right-sided portacatheter is seen with the tip at the junction of the superior vena cava and right atrium. Hyperinflation. There is prominence of the right infrahilar region with possible volume loss in the right middle lobe. Correlation with a CT scan is recommended. There is no demonstrated pleural abnormality. Normal size heart. Normal mediastinum and humberto. Normal visualized pulmonary arteries. Normal visualized aortic arch and descending thoracic aorta. Normal visualized thoracic spine. Normal visualized ribs, clavicles, and shoulders. There is no demonstrated abnormality of the visualized soft tissue structures of the upper abdomen. RAD/Chest 1 View (Portable) IMPRESSION: Prominence of the right infrahilar region with possible volume loss or infiltrate in the right middle lobe. COLACE with a CT scan is recommended. Electronically Signed: Dalton Michel MD at 10:48 EDT , Service support ,
[2020-08-13 10:30] LABS: D-Dimer Quantitative (DVT/PE) 0.46 FEU/ug/m (0.27-0.49)
[2020-08-13 10:36] LABS: Anion Gap 5 (5-15); BUN 13 mg/dL (7-18); BUN/Creat Ratio 16.5 RATIO (10-20); Calcium,Total 9.1 mg/dL (8.5-10.1); Chloride 107 mmol/L (98-107); Creatinine, Serum 0.79 mg/dL (0.55-1.02); EST Glomerular Filtration Rate 82 mL/min (>60); Est Glom Filt Rate - Afr Amer 100 mL/min (>60); Estimated Creatinine Clearance 83.77 ml/min; Glucose 102 mg/dL (74-106); Potassium 3.9 mmol/L (3.5-5.1); Sodium Level 138 mmol/L (136-145)
[2020-08-13] MEDS: Nitroglycerin Oint 1 INCH PACKET TD (10:47)
--- NOTE | 2020-08-13 10:51 | HP.PCM.HOS_ITS ---
HPI - General General Date of Admission: 08/13/20 HPI Narrative ALON EVANS, is a 50 F with a PMH as outlined who was admitted with a complaint of chest discomfort, which radiated into neck and down her left arm. Chest pain woke her up from sleep this morning. Chest pain improved with SL nitroglycerin in the past. She had similar chest pain in the past, and had a negative stress test ~ 4 years ago. She denied any shortness of breath, palpitations or dizziness, nausea vomiting or diarrhea. Review of symptoms otherwise negative. Vitals in the ED with temperature of 98.2 Fahrenheit with pulse rate of seventy-two respiratory rate of eleven and she was saturating at 100% on room air with blood pressure 142/82. CBC and BMP were essentially unremarkable initial troponin was negative. EKG showed no acute ST changes. She has been admitted to be managed for chest pain rule out ACS. [facility] Medical History (Updated 08/13/20 @ 10:[address] Tan David, ) Gastroesophageal reflux disease without esophagitis Hemochromatosis Hypertension PORT PLACEMENT Home Medications folic acid 1 mg PO DAILY@0800 08/04/17 [History Last Taken 08/13/20 06:00] lisinopril 10 mg PO DAILY 08/04/17 [History Last Taken 08/13/20 06:00] omeprazole 20 mg PO DAILY 08/04/17 [History Last Taken 08/13/20 06:00] hydroxyzine HCl 25 mg PO Q4H PRN 04/17/19 [History Last Taken Unknown] escitalopram oxalate 10 mg PO DAILY 08/13/20 [History Last Taken 08/13/20 06:00] Allergy/AdvReac Type Severity Reaction Status Date / Time No Known Allergies Allergy Verified 08/13/20 10:03 Family History (Updated 04/19/19 @ 15:23 by Shawna Warner) Father Hemochromatosis Hypertension Mother Hypertension Aunt Hemochromatosis Uncle Hemochromatosis Surgical History History of tonsillectomy History of tubal ligation Social History Smoking Status: Current every day smoker tobacco type: cigarettes ROS Constitutional Constitutional: Denies anorexia, change in weight, chills, fatigue, malaise or weakness ENT HEENT: Denies dysphagia, headache(s), hearing loss, nasal congestion or nasal discharge Cardiovascular Cardiovascular: Reports chest pain; Denies dyspnea on exertion, edema, lightheadedness, orthopnea, palpitations, paroxysmal nocturnal dyspnea or rapid heart rate Respiratory/Chest Respiratory/Chest: Denies cough, dyspnea, shortness of breath at rest or shortness of breath with exertion Gastrointestinal Gastrointestinal: Denies abdominal pain, constipation, diarrhea, nausea or vomiting Genitourinary Genitourinary: Denies burning urination Musculoskeletal Musculoskeletal: Denies arthralgias or joint pain Neurologic Neurologic: Denies dizziness, focal weakness, headache(s) or numbness Psychiatric Psychiatric: Denies anxiety Endocrine Endocrinology: Denies change in body appearance Hematologic/Lymphatic Hematologic/Lymphatic: Denies anemia Vital Signs Vital Signs Vital Signs: 08/13/20 09:59 08/13/20 10:13 08/13/20 10:20 Temperature 98.2 F Temperature Source Oral Pulse Rate 72 76 Respiratory Rate 11 L Respiratory Effort Normal Non-Labored Respiratory Pattern Normal Blood Pressure 142/82 H 115/79 Blood Pressure Mean 102 Pulse Ox 100 Oxygen Delivery Method Room Air Room Air 08/13/20 10:28 08/13/20 10:33 08/13/20 10:47 Temperature Temperature Source Pulse Rate 73 74 68 Respiratory Rate Respiratory Effort Respiratory Pattern Blood Pressure 120/99 H 110/76 107/78 Blood Pressure Mean Pulse Ox Oxygen Delivery Method Weight Weight: 206 lb 12.697 oz Body Mass Index (BMI) 32.3 Physical Exam Const alert, oriented x3 and no apparent distress General Appearance: cooperative HEENT normocephalic, head/scalp atraumatic, hearing grossly normal bilaterally and moist oral mucous membranes Eyes PERRL, EOMs intact bilaterally and conjunctivae normal Neck no lymphadenopathy, supple and no carotid bruits Resp normal respiratory effort and no retractions Cardio regular rate, regular rhythm, S1 normal heart sound, S2 normal heart sound and no murmurs GI normal to inspection, nondistended, normoactive bowel sounds, soft to palpation, non-tender and non-distended Extremity normal to inspection, full ROM and no clubbing, cyanosis or edema Peripheral Pulses: Yes pulses 2+ throughout Skin no rashes or lesions noted Neuro oriented x3 Sensorium / Orientation: awake Psych affect normal Lab / Micro Data Result Diagrams: 08/13/20 10:05 08/13/20 10:05 Labs: Laboratory Results - last 24 hr 08/13/20 08/13/20 08/13/20 10:05 10:05 10:05 WBC 5.7 RBC 5.08 Hgb 12.6 Hct 40.3 MCV 79.3 L MCH 24.8 L MCHC 31.3 L RDW Std Deviation 53.8 H RDW Coeff of Skip 19.4 H Plt Count 236 MPV 10.7 Immature Gran % (Auto) 0.400 Neut % (Auto) 52.6 Lymph % (Auto) 39.0 [place] % (Auto) 6.0 Eos % (Auto) 0.9 Baso % (Auto) 1.1 H Absolute Neuts (auto) 3.0 Absolute Lymphs (auto) 2.21 Nucleated RBC % 0 D-Dimer Quant (PE/DVT) 0.46 Sodium 138 Potassium 3.9 Chloride 107 Carbon Dioxide 26.0 Anion Gap 5 BUN 13 Creatinine 0.79 Estim Creat Clear Calc 83.77 Est GFR (MDRD) Af Amer 100 Est GFR (MDRD) Non-Af 82 BUN/Creatinine Ratio 16.5 Glucose 102 Calcium 9.1 Troponin I < 0.015 Radiology Impression Chest X-Ray 08/13/20 10:20 IMPRESSION: Prominence of the right infrahilar region with possible volume loss or infiltrate in the right middle lobe. COLACE with a CT scan is recommended. Electronically Signed: Dalton Michel MD at 10:48 EDT , Service support , Assessment & Plan Assessment/Plan (1) Chest pain: QUALIFIERS: Chest pain type: unspecified Qualified Code(s): R07.9 - Chest pain, unspecified PLAN: #Chest pain to r/o ACS * admit to PCU with telemetry * Cycle troponins x3 * P.o. aspirin 81 mg daily. Sublingual nitroglycerin as needed * For stress test tomorrow if troponins are negative. * #Hypertension: On lisinopril #History of hemochromatosis: Stable #Depression: On escitalopram #GERD: On omeprazole #Nicotine dependence: counseled to quit. Nicotine patch 21mg daily. Says she sm okes between half to 1 pack daily. DVT prophylaxis: Lovenox CODE STATUS: Full code * Patient and the family counseled about differences between full code, DNR CCA and DNR CCA. Patient wishes to be full code. * Total [id number] time 17 minutes. # Visit Charges OBSV E&M: 33032 Initial observation care L2 Procedures Hospitalists Procedures: 00408 Advncd Care Plan 30 Min
--- NOTE | 2020-08-13 10:53 | NURSING ---
DR ABE TIWARI
--- NOTE | 2020-08-13 10:57 | NURSING ---
PCU OBS CUATE FISH
[2020-08-13] MEDS: Acetaminophen 325 MG Tablet 650 MG PO (15:56)
--- NOTE | 2020-08-13 18:42 | EKG12_ITS ---
Test Reason : CP ADMIT Blood Pressure : / mmHG Vent. Rate : 059 BPM Atrial Rate : 059 BPM P-R Int : 168 ms QRS Dur : 088 ms QT Int : 408 ms P-R-T Axes : 049 063 047 degrees QTc Int : 403 ms Sinus bradycardia Otherwise normal ECG When compared with ECG of 13-AUG-2020 10:02, MANUAL COMPARISON REQUIRED, DATA IS UNCONFIRMED Confirmed by SHELLY RODRIGUEZ, KULDEEP ([id number]), business editor JAKE BLUE ([id number]) on 08/18/2020 10:41:57 AM Referred By: DR FISH Confirmed By:DUTCH BRAVO MD
[2020-08-14 03:00] VITALS: PULSE 59
[2020-08-14] MEDS: 0.9% Normal Saline 1,000 ML 150 ML IV ×2 (05:04→12:02)
[2020-08-14] MEDS: Lisinopril 10 MG Tablet PO (05:15)
[2020-08-14 05:36] LABS: Absolute Lymphocyte Count 2.22 X10^3/uL (0.83-4.51); Absolute Neutrophil Count 2.5 X10^3/uL (2.0-7.7); Basophil# 0.05 X10^3/uL; Eosinophil# 0.07 X10^3/uL; Eosinophils% 1.4 % (0-5); Hemoglobin 11.2 g/dL (12.0-15.0); Lymphocyte # 2.22 X10^3/ul (0.83-4.51); Lymphocyte % 43.1 % (19-41); Mean Corp Hgb Conc 31.1 g/dL (32-36); Mean Corpuscular Hgb 25.3 pg (27.0-32.0); Mean Corpuscular Volume 81.3 fL (81-99); Mean Platelet Vol. 11.3 fl (6.2-12.0); Monocyte# 0.33 X10^3/uL; Monocyte% 6.4 % (0-10); NRBC Flagged by Analyzer 0 % (0-5); Neutrophil # 2.47 X10^3/uL (2.7-7.7); Neutrophil % 47.9 % (47-70); Platelet Count 204 K/mm3 (150-450); RBC Distribution Width CV 19.2 % (11.6-14.6); Red Blood Count 4.43 M/mm3 (4.2-5.4); White Blood Count 5.2 K/mm3 (4.4-11.0)
[2020-08-14 05:42] VITALS: BP 142/87; PULSE 59; RESP 16; TEMP 36.3; O2SAT 96
[2020-08-14 05:50] LABS: Anion Gap 6 (5-15); BUN 12 mg/dL (7-18); BUN/Creat Ratio 17.4 RATIO (10-20); Calcium,Total 8.1 mg/dL (8.5-10.1); Chloride 112 mmol/L (98-107); Creatinine, Serum 0.69 mg/dL (0.55-1.02); EST Glomerular Filtration Rate 96 mL/min (>60); Est Glom Filt Rate - Afr Amer 116 mL/min (>60); Estimated Creatinine Clearance 85.17 ml/min; Glucose 90 mg/dL (74-106); Sodium Level 141 mmol/L (136-145)
--- NOTE | 2020-08-14 05:55 | EKG12_ITS ---
Test Reason : AM EKG Blood Pressure : / mmHG Vent. Rate : 061 BPM Atrial Rate : 061 BPM P-R Int : 162 ms QRS Dur : 088 ms QT Int : 404 ms P-R-T Axes : 066 072 055 degrees QTc Int : 406 ms Normal sinus rhythm Normal ECG When compared with ECG of 13-AUG-2020 19:04, MANUAL COMPARISON REQUIRED, DATA IS UNCONFIRMED Confirmed by SHELLY RODRIGUEZ, KULDEEP ([id number]), marketing editor JAKE BLUE ([id number]) on 08/18/2020 10:39:21 AM Referred By: DR FISH Confirmed By:DUTCH BRAVO MD
[2020-08-14 06:33] VITALS: PULSE 54
[2020-08-14 10:13] VITALS: BP 129/87; PULSE 60; RESP 18; TEMP 36.5; O2SAT 99
[2020-08-14] MEDS: Escitalopram Oxalate 10 MG Tablet PO (10:22)
[2020-08-14] MEDS: Folic Acid 1 MG Tablet PO (10:22)
[2020-08-14] MEDS: Pantoprazole Sodium 20 MG Tablet PO (10:22)
--- NOTE | 2020-08-14 11:41 | PCM.DC.SUM ---
Providers Date of Admission: 08/13/20 Primary Care Physician: Dr. Cam Crane MD Reason For Visit: CHEST PAIN Diagnosis Discharge Diagnosis (1) Chest pain: Status: Acute Code(s): R07.9 - Chest pain, unspecified Qualifiers: Chest pain type: unspecified Qualified Code(s): R07.9 - Chest pain, unspecified Medications at Discharge Home Medications folic acid 1 mg PO DAILY@0800 08/04/17 lisinopril 10 mg PO DAILY 08/04/17 omeprazole 20 mg PO DAILY 08/04/17 hydroxyzine HCl 25 mg PO Q4H PRN 04/17/19 escitalopram oxalate 10 mg PO DAILY 08/13/20 nitroglycerin 0.4 mg SUBLINGUAL Q5M PRN #30 tab 08/14/20 Hospital Course Operations None Procedures Nuclear stress test Summary of Care Provided Minutes Spent on Discharge: 35 Hospital Course: ALON EVANS, is a 50 F with a PMH as outlined who was admitted with a complaint of chest discomfort, which radiated into neck and down her left arm. Chest pain woke her up from sleep this morning. Chest pain improved with SL nitroglycerin in the past. She had similar chest pain in the past, and had a negative stress test ~ 4 years ago. She denied any shortness of breath, palpitations or dizziness, nausea vomiting or diarrhea. Review of symptoms otherwise negative. Vitals in the ED with temperature of 98.2 Fahrenheit with pulse rate of seventy-two respiratory rate of eleven and she was saturating at 100% on room air with blood pressure 142/82. CBC and BMP were essentially unremarkable initial troponin was negative. EKG showed no acute ST changes. She was admitted to be managed for chest pain rule out ACS. She had stress test done on 08/14/2020 which was negative for any evidence of ischemia. Patient remained stable. She was counseled to quit smoking. She was discharged home on 08/14/2020 and is to follow-up with her primary care doctor within 1 to 2 weeks. Patient was seen and examined prior to discharge. She had no complaints and felt well. Review of symptoms otherwise negative. Labs and vitals reviewed. Home medication reviewed and reconciled. Physical Exam Const alert, oriented x3 and no apparent distress General Appearance: cooperative HEENT normocephalic, head/scalp atraumatic, hearing grossly normal bilaterally and moist oral mucous membranes Eyes PERRL, EOMs intact bilaterally and conjunctivae normal Neck no lymphadenopathy, supple and no carotid bruits Resp normal respiratory effort and no retractions Cardio regular rate, regular rhythm, S1 normal heart sound, S2 normal heart sound and no murmurs GI normal to inspection, nondistended, normoactive bowel sounds, soft to palpation, non-tender and non-distended Extremity normal to inspection, full ROM and no clubbing, cyanosis or edema Skin no rashes or lesions noted Neuro oriented x3 Sensorium / Orientation: awake and alert Psych affect normal ABG / Lab / Microbiology Data Result Diagrams: 08/14/20 05:04 08/14/20 05:04 Laboratory: Laboratory Results - last 24 hr 08/13/20 08/13/20 08/14/20 14:04 16:25 05:04 WBC 5.2 RBC 4.43 Hgb 11.2 L Hct 36.0 L MCV 81.3 MCH 25.3 L MCHC 31.1 L RDW Std Deviation 56.0 H RDW Coeff of Skip 19.2 H Plt Count 204 MPV 11.3 Immature Gran % (Auto) 0.200 Neut % (Auto) 47.9 Lymph % (Auto) 43.1 H [place] % (Auto) 6.4 Eos % (Auto) 1.4 Baso % (Auto) 1.0 Absolute Neuts (auto) 2.5 Absolute Lymphs (auto) 2.22 Nucleated RBC % 0 Sodium Potassium Chloride Carbon Dioxide Anion Gap BUN Creatinine Estim Creat Clear Calc Est GFR (MDRD) Af Amer Est GFR (MDRD) Non-Af BUN/Creatinine Ratio Glucose Calcium Troponin I < 0.015 < 0.015 08/14/20 05:04 WBC RBC Hgb Hct MCV MCH MCHC RDW Std Deviation RDW Coeff of Skip Plt Count MPV Immature Gran % (Auto) Neut % (Auto) Lymph % (Auto) [place] % (Auto) Eos % (Auto) Baso % (Auto) Absolute Neuts (auto) Absolute Lymphs (auto) Nucleated RBC % Sodium 141 Potassium 4.0 Chloride 112 H Carbon Dioxide 23.0 Anion Gap 6 BUN 12 Creatinine 0.69 Estim Creat Clear Calc 85.17 Est GFR (MDRD) Af Amer 116 Est GFR (MDRD) Non-Af 96 BUN/Creatinine Ratio 17.4 Glucose 90 Calcium 8.1 L Troponin I D/C Instructions Discharge Diet: 2000 mg Sodium Diet Discharge Activity: Return to Normal Activity Weight Bearing Status: Weight bearing as tolerated Call your doctor if you observe: Shortness of breath, Dizziness, Fainting spells, Chest pain and Increased palpitations (irregular heartbeat) Meaningful Use Info Meaningful Use Diagnoses (Choose all that apply): None applicable Discharge Plan Admission Admit Date/Time: 08/13/20 11:00 Primary Reason for Your Visit: chest pain Attending Provider: Radha Chavez Primary Care Provider: Cam Crane Instructions Patient Instructions: ED Chest Pain, Noncardiac Additional Instructions / Restrictions: Patient counseled to quit smoking Discharge Orders/Prescriptions Prescriptions: New nitroglycerin 0.4 mg tablet, sublingual 0.4 mg sublingual Q5M PRN (Reason: chest pain) Qty: 30 RF: 0 Continued lisinopril 10 MG tablet 10 mg PO DAILY RF: 0 omeprazole 20 MG capsule 20 mg PO DAILY RF: 0 folic acid 1 MG tablet 1 mg PO DAILY@0800 RF: 0 hydroxyzine HCl 25 MG tablet 25 mg PO Q4H PRN (Reason: Anxiety) RF: 0 escitalopram oxalate 10 mg tablet 10 mg PO DAILY RF: 0 Referrals / Follow Up: Cam Crane MD [Primary Care Provider] - In 1 Week Disposition Disposition (needs filled in before D/C Order can be placed): Home, self care Visit Charges OBSV E&M: 82412 Observation care discharge
--- NOTE | 2020-08-14 12:55 | STRESSREP_ITS ---
Stress Test Report Date: 08/14/2020 Procedure: Exercise tolerance test/imaging study Indications: Chest pain Consent: Per the patient Procedure: The patient exercised on a Freeman protocol for 4 minutes and 12 seconds achieving a peak heart rate of 153 bpm (89% predicted maximal heart rate) with a peak blood pressure 186/92 mmHg and a peak MET capacity of 6 METs. The baseline ECG demonstrated normal sinus rhythm. The peak exercise ECG demonstrated no significant ischemic changes. EKG during recovery revealed no significant ischemic changes [There were no cardiac dysrhythmias pretest, during exercise, or recovery]. The functional capacity was considered decreased for age. There was [no complaint of chest discomfort during exercise or recovery]. The examination was discontinued secondary to shortness of breath. Impression: 1. Technically adequate (percent predicted maximal heart rate greater than 85%) exercise tolerance test 2. Stress test is negative for exercise-induced EKG changes of ischemia 3. The test test is negative for exercise-induced chest pain 4. Functional capacity is decreased for age 5. Nuclear images pending Myocardial perfusion imaging study: Technique: The patient was injected with 12 mCi of technetium 99m Cardiolite and subsequently rest SPECT Cardiolite nuclear imaging was obtained in the horizontal long, vertical long, and short axis views. The patient exercised on a Freeman protocol. Please see above for details. The patient was injected with 40.3 mCi of technetium 99m Cardiolite and subsequently stress SPECT Cardiolite nuclear imaging was obtained in the horizontal long, vertical long, and short axis views. A gated Cardiolite study at peak stress was obtained. Interpretation: Rest and stress SPECT Cardiolite nuclear imaging status post realignment, normalization, and attenuation correction, demonstrates [no evidence of significant ischemia or infarction]. The gated Cardiolite study demonstrates no significant regional wall motion abnormalities. The reported LVEF is 69%. Impression: 1. There is no evidence of significant ischemia or infarction. 2. The gated Cardiolite study reports an LVEF of 69%. This note was generated with [employer] software. It may contain incorrect words, spelling, and punctuation that were not noted in checking the note before signing.
[2020-08-14] MEDS: 0.9% Saline Lock 10 ML Syringe IV (13:41)
== END 2020-08-14 11:45 | disposition home or self-care (01) ==
LOC: ED 10:43 → PCU 11:20
PROVIDERS: Admitting Provider Student in an Organized Health Care Education/Training Program; Emergency Provider Emergency Medicine; PCP Family Medicine; Visit Provider Student in an Organized Health Care Education/Training Program
DX: R07.89 Other chest pain (principal); R06.00 Dyspnea, unspecified; I10 Essential (primary) hypertension; E78.00 Pure hypercholesterolemia, unspecified; E83.119 Hemochromatosis, unspecified; K21.9 Gastro-esophageal reflux disease without esophagitis; F17.210 Nicotine dependence, cigarettes, uncomplicated; Z79.899 Other long term (current) drug therapy; F32.9 Major depressive disorder, single episode, unspecified
CPT/HCPCS: 36415; 71045; 78452; 80048; 84484; 85025; 85379; 93005; 93017; 96361; 96374; 99218; 99285; A9500; J7030; A4216; G0378

== ENCOUNTER 2020-09-08 16:41 | Emergency (ER) | payer OTHER, SELFPAY ==
[2020-08-13 13:52] VITALS: BMI 34.8
[2020-09-08 16:42] VITALS: BP 132/83; PULSE 86; RESP 15; TEMP 37.2; O2SAT 98; BMI 34.3
--- NOTE | 2020-09-08 17:46 | EKG12_ITS ---
Test Reason : CP Blood Pressure : / mmHG Vent. Rate : 072 BPM Atrial Rate : 072 BPM P-R Int : 164 ms QRS Dur : 088 ms QT Int : 368 ms P-R-T Axes : 059 056 037 degrees QTc Int : 402 ms Normal sinus rhythm Possible Left atrial enlargement Borderline ECG Confirmed by CONCHIS RODRIGUEZ, MAHIN ([id number]), state editor JAKE BLUE ([id number]) on 09/10/2020 10:33:47 AM Referred By: MEREDITH/KARIE Confirmed By:MAHIN BALDERRAMA MD
--- NOTE | 2020-09-08 17:47 | EDS_ITS ---
HPI History of Present Illness Chief Complaint: Chest Pain Informant: patient Onset/Context/Timing Onset: Weeks () Activity at onset: sudden Timing: Intermittent and Lasts (Few minutes) Quality: Positive for Sharp and - (Throbbing) Location: Left Chest Worsened By: Nothing Relieved By: Nothing Associated Symptoms: Positive for Dyspnea, Lightheadedness and Palpitations; Negative for Nausea, Vomiting, Diaphoresis, Cough, Fever and Acid Reflux Narrative Narrative: Patient presents with chest pain that has been intermittent over the past 1-1/2 to 2 weeks. Patient states the pain is throbbing and sharp at times. Patient states it lasts a few minutes. Patient states it is over the left upper chest occasionally radiates across to the right side of her chest. Patie nt admits to some lightheadedness that is usually worse in the mornings. Patient also admits to some palpitations and occasional shortness of breath. Patient denies any nausea or vomiting. Patient denies any diaphoresis. Patient denies any cough or fevers. PFSH PFS Medical History (Updated 09/08/20 @ 20:[address] Jerry Montoya, ) Anxiety Depression Essential (primary) hypertension Gastroesophageal reflux disease without esophagitis Hemochromatosis Hypertension Nicotine dependence Obesity (BMI 30-39.9) Substance abuse Home Medications folic acid 1 mg PO DAILY@0800 08/04/17 [History Last Taken 08/13/20 06:00] lisinopril 10 mg PO DAILY 08/04/17 [History Last Taken 08/13/20 06:00] omeprazole 20 mg PO DAILY 08/04/17 [History Last Taken 08/13/20 06:00] hydroxyzine HCl 25 mg PO Q4H PRN 04/17/19 [History Last Taken Unknown] escitalopram oxalate 10 mg PO DAILY 08/13/20 [History Last Taken 08/13/20 06:00] nitroglycerin 0.4 mg SUBLINGUAL Q5M PRN #30 tab 08/14/20 [Rx Last Taken Unknown] Allergy/AdvReac Type Severity Reaction Status Date / Time No Known Allergies Allergy Verified 09/08/20 16:41 Family History (Updated 04/19/19 @ 15:23 by Shawna Warner) Father Hemochromatosis Hypertension Mother Hypertension Aunt Hemochromatosis Uncle Hemochromatosis Surgical History History of tonsillectomy History of tubal ligation PORT PLACEMENT Social History Smoking Status: Current every day smoker tobacco type: cigarettes ROS ROS ED Constitutional Constitutional ED: Denies chills or fever(s) Eyes Eyes: Denies blurry vision or change in vision ENT ENT ED: Denies rhinorrhea or sore throat Cardiovascular Cardiovascular: Reports chest pain and palpitations Respiratory/Chest Respiratory/Chest: Reports dyspnea; Denies cough Gastrointestinal Gastrointestinal: Reports nausea; Denies abdominal pain or vomiting Genitourinary Genitourinary ED: Denies dysuria or hematuria Musculoskeletal Musculoskeletal: Reports back pain; Denies neck pain Integumentary Denies abscess or rash Neurologic Neurologic: Reports headache(s); Denies weakness Allergic/Immunologic Allergic/Immunologic ED: Denies mouth swelling or urticaria EXAM Physical Exam Const Vital Signs: 09/08/20 16:42 09/08/20 17:46 09/08/20 18:12 Temperature 99.0 F Temperature Source Temporal Pulse Rate 86 Respiratory Rate 15 Respiratory Effort Normal Non-Labored Respiratory Pattern Normal Blood Pressure 132/83 H Blood Pressure Mean 99 Pulse Ox 98 Oxygen Delivery Method Room Air Room Air 09/08/20 20:27 Temperature Temperature Source Pulse Rate 75 Respiratory Rate 14 Respiratory Effort Respiratory Pattern Blood Pressure 114/63 Blood Pressure Mean Pulse Ox 96 Oxygen Delivery Method Positive well nourished, well developed and obese General Appearance ED: well developed Nutritional Appearance: obese HEENT normocephalic and atraumatic Eyes PERRL and EOMs intact bilaterally Neck supple and no JVD Chest Wall Chest: tenderness pectoral muscle left Resp normal respiratory effort and clear to auscultation bilaterally Effort and Inspection: Negative for respiratory distress Cardio regular rate, regular rhythm and no murmurs GI normal to inspection, nondistended, normoactive bowel sounds, soft to palpation, non-tender and non-distended Extremity normal to inspection General Extremety ED: Negative for edema or tenderness General Extremity: Negative for edema Neuro oriented x3, CN's II-XII intact bilaterally and no sensory deficits noted Sensorium / Orientation: awake and alert Motor Exam: strength 5/5 throughout Psych mental status grossly normal Heart Score History: Slightly/Non-Suspicious ECG: Normal Age: >45 - <65 years Risk Factors: 1 or 2 Risk Factors Troponin: </= Normal Limit Score: 2 MDM MDM MDM Narrative Medical decision making narrative: EKG was obtained. On my interpretation, it showed a normal sinus rhythm with a rate of 72. FL interval, QRS interval, and QTc intervals were all normal. [place] was normal. There are no acute ST or T wave changes. Portable 1 view chest x-ray was obtained. On my interpretation, lung ramos are clear. There is normal cardiac silhouette. Bony thorax is normal. There is no acute process noted. Radiologist also interpreted the x- ray and agrees. CBC, basic metabolic profile, and troponin were obtained were all within normal limits. Patient was given aspirin here. Patient is feeling better on reevaluation. Prior records were reviewed. Patient had a stress test on 08/14/2020 and was normal. Patient was instructed to follow-up with her primary care physician in 3 to 5 days. Patient has a HEART score of 2. Patient was advised that this is low risk for acute cardiac event. Patient understood and was agreeable with the plan. All questions were answered. Lab Data Attestation: I reviewed the patient's lab results. Labs: Laboratory Results - last 24 hr 09/08/20 09/08/20 19:20 19:20 WBC 6.6 RBC 4.56 Hgb 11.4 L Hct 36.2 L MCV 79.4 L MCH 25.0 L MCHC 31.5 L RDW Std Deviation 57.1 H RDW Coeff of Skip 20.6 H Plt Count 210 MPV 11.2 Immature Gran % (Auto) 0.300 Neut % (Auto) 55.9 Lymph % (Auto) 36.1 [place] % (Auto) 5.6 Eos % (Auto) 1.2 Baso % (Auto) 0.9 Absolute Neuts (auto) 3.7 Absolute Lymphs (auto) 2.37 Nucleated RBC % 0 Anisocytosis 1+ Sodium 138 Potassium 3.6 Chloride 107 Carbon Dioxide 24.0 Anion Gap 7 BUN 9 Creatinine 0.68 Estim Creat Clear Calc 86.42 Est GFR (MDRD) Af Amer 118 Est GFR (MDRD) Non-Af 98 BUN/Creatinine Ratio 13.2 Glucose 83 Calcium 8.7 Troponin I High Sens 3.3 Radiography Chest X-Ray - ED: 1 View, Read by ED Physician, Read by Radiologist and Normal Diagnostic Testing: Radiology Impression Chest X-Ray 09/08/20 18:30 IMPRESSION: No acute pulmonary process Electronically Signed: Darin Abel MD at 18:58 EDT , Service support , EKG Initial EKG: Attestation: I personally reviewed and interpreted this EKG as follows: Interpretation: Sinus Rhythm and No Acute Injury Pattern Prior EKG tracings: available for review Prior: Unchanged (08/14/2020) Discharge Plan Triage Chief Complaint: Chest Pain ED Provider: Jerry Montoya Dx/Rx/DC Orders Clinical Impression: Chest pain of uncertain etiology Instructions: ED Chest Pain, Uncertain Cause Prescriptions: No Action lisinopril 10 MG tablet 10 mg PO DAILY RF: 0 omeprazole 20 MG capsule 20 mg PO DAILY RF: 0 folic acid 1 MG tablet 1 mg PO DAILY@0800 RF: 0 hydroxyzine HCl 25 MG tablet 25 mg PO Q4H PRN (Reason: Anxiety) RF: 0 escitalopram oxalate 10 mg tablet 10 mg PO DAILY RF: 0 nitroglycerin 0.4 mg tablet, sublingual 0.4 mg sublingual Q5M PRN (Reason: chest pain) Qty: 30 RF: 0 Primary Care Provider: Cam Crane Referrals: Cam Crane MD [Primary Care Provider] - 3-5 Days Disposition Disposition: Home, Self Care Discharge Date/Time: 09/08/20 20:38
[2020-09-08] MEDS: Aspirin 81 MG TAB.CHEW 324 MG PO (18:11)
--- NOTE | 2020-09-08 18:30 | RAD_ITS ---
STUDY: X-RAY CHEST REASON FOR EXAM: Female, 50 years old. Chest pain TECHNIQUE: Single AP portable view of the chest. COMPARISON: 08/13/2020 FINDINGS: EKG leads overlie the chest. Stable appearance of a right subclavian port The lungs are clear and expanded. There is no demonstrated pleural abnormality. Previously noted opacifications in the right infrahilar region have resolved. Normal size heart. Normal mediastinum and humberto. Normal visualized pulmonary arteries. Normal visualized aortic arch and descending thoracic aorta. Normal visualized thoracic spine. Normal visualized ribs, clavicles, and shoulders. There is no demonstrated abnormality of the visualized soft tissue structures of the upper abdomen. RAD/Chest 1 View (Portable) IMPRESSION: No acute pulmonary process Electronically Signed: Darin Abel MD at 18:58 EDT , Service support ,
[2020-09-08 19:27] LABS: Absolute Lymphocyte Count 2.37 X10^3/uL (0.83-4.51); Absolute Neutrophil Count 3.7 X10^3/uL (2.0-7.7); Basophil# 0.06 X10^3/uL; Basophil% 0.9 % (0-1); Eosinophil# 0.08 X10^3/uL; Eosinophils% 1.2 % (0-5); Hematocrit 36.2 % (37-47); Hemoglobin 11.4 g/dL (12.0-15.0); Lymphocyte # 2.37 X10^3/ul (0.83-4.51); Lymphocyte % 36.1 % (19-41); Mean Corp Hgb Conc 31.5 g/dL (32-36); Mean Corpuscular Volume 79.4 fL (81-99); Mean Platelet Vol. 11.2 fl (6.2-12.0); Monocyte# 0.37 X10^3/uL; Monocyte% 5.6 % (0-10); NRBC Flagged by Analyzer 0 % (0-5); Neutrophil # 3.66 X10^3/uL (2.7-7.7); Neutrophil % 55.9 % (47-70); POSITIVE MORPHOLOGY YES; Platelet Count 210 K/mm3 (150-450); RBC Distribution Width CV 20.6 % (11.6-14.6); RBC Distribution Width SD 57.1 fl (35.1-43.9); Red Blood Count 4.56 M/mm3 (4.2-5.4); White Blood Count 6.6 K/mm3 (4.4-11.0)
[2020-09-08 19:44] LABS: Anion Gap 7 (5-15); BUN 9 mg/dL (7-18); BUN/Creat Ratio 13.2 RATIO (10-20); Calcium,Total 8.7 mg/dL (8.5-10.1); Chloride 107 mmol/L (98-107); Creatinine, Serum 0.68 mg/dL (0.55-1.02); EST Glomerular Filtration Rate 98 mL/min (>60); Est Glom Filt Rate - Afr Amer 118 mL/min (>60); Estimated Creatinine Clearance 86.42 ml/min; Glucose 83 mg/dL (74-106); Potassium 3.6 mmol/L (3.5-5.1); Sodium Level 138 mmol/L (136-145); Troponin-I HS 3.3 pg/mL (3.0-53.7)
[2020-09-08 19:48] LABS: Differential Indicated SCAN CRITERIA MET
[2020-09-08 19:49] LABS: Anisocytosis 1+
[2020-09-08 20:27] VITALS: BP 114/63; PULSE 75; RESP 14; O2SAT 96
== END 2020-09-08 20:38 | disposition home or self-care (01) ==
PROVIDERS: Emergency Provider Emergency Medicine; PCP Family Medicine
DX: R07.9 Chest pain, unspecified (principal); R06.02 Shortness of breath; R00.2 Palpitations; F17.210 Nicotine dependence, cigarettes, uncomplicated; E66.9 Obesity, unspecified; F32.9 Major depressive disorder, single episode, unspecified; I10 Essential (primary) hypertension; K21.9 Gastro-esophageal reflux disease without esophagitis; Z79.899 Other long term (current) drug therapy
CPT/HCPCS: 71045; 80048; 84484; 85025; 93005; 99283; A4216

== ENCOUNTER 2021-09-16 09:17 | Emergency (ER) | payer BC, MEDICAID, SELFPAY ==
[2021-09-16 09:17] VITALS: BP 141/85; PULSE 76; RESP 16; TEMP 36; O2SAT 100; BMI 35.3
--- NOTE | 2021-09-16 09:30 | CT_ITS ---
STUDY: CT ABDOMEN AND PELVIS WITH CONTRAST REASON FOR EXAM: Female, 51 years old. RLQ pain. The patient has a history of hemochromatosis. RADIATION DOSAGE (If Supplied By Facility): CTDIvol = ( 17.55 ) mGy, DLP = ( 1090.28 ) mGycm TECHNIQUE: Transaxial images were obtained from the dome of the diaphragm to the symphysis pubis without oral contrast. IV 100mL Isovue-300 was administered. Sagittal and coronal images were reconstructed. Individualized dose optimization techniques were used for this CT. COMPARISON: None. FINDINGS: The visualized lung bases are unremarkable. The visualized portions of the heart are within normal limits. Normal liver. Normal gallbladder and extrahepatic biliary system. There is mild splenomegaly. Normal pancreas. Normal bilateral adrenal glands. Normal right kidney. Normal left kidney. Diffuse gastric wall thickening although the stomach is not adequately distended for full assessment. Normal small intestine. Moderate amount of fecal material is seen in the right hemicolon. The appendix is visualized and appears normal. There is scattered atherosclerotic calcification of the abdominal aorta, without a demonstrated aneurysm. Normal inferior vena cava. There is borderline retroperitoneal lymphadenopathy with enlarged nodes no greater than 10mm in the short axis diameter. Normal urinary bladder. There is a right-sided inguinal hernia containing adipose tissue. Disc space narrowing and disc degeneration at the L5-S1 level with posterior spondylosis and central canal stenosis. CT/Abdomen/Pelvis W IV Cont ONLY IMPRESSION: Small right inguinal hernia containing fat. Moderate amount of fecal material is seen in the right hemicolon. Diffuse gastric wall thickening although the stomach is not adequately distended. Electronically Signed: Dalton Michel MD at 10:49 EDT ,
--- NOTE | 2021-09-16 09:34 | EX.ED.DYSGE1 ---
HPI History of Present Illness Chief Complaint: Abd Pain Informant: patient Onset/Context/Timing Onset: Today Current Severity: Moderate Narrative Narrative: 51-year-old female presenting with right lower quadrant abdominal pain. Patient states she had some nausea over the last couple days but now has right lower quadrant abdominal pain which started today. She denies vomiting. She has had loose stools, denies diarrhea. Denies dysuria. Denies sick contacts. Denies fever. Recent Illness/Hospitalization: No PFSH PFSH Medical History Anxiety Depression Essential (primary) hypertension Gastroesophageal reflux disease without esophagitis Hemochromatosis Hypertension Marijuana use Nicotine dependence Obesity Obesity (BMI 30-39.9) Snoring Substance abuse Home Medications folic acid 1 mg tablet 1 mg PO DAILY@0800 supplement 08/04/17 [History Last Taken 08/13/20 06:00] omeprazole 20 mg capsule,delayed release 20 mg PO DAILY acid reflex 08/04/17 [History Last Taken 08/13/20 06:00] escitalopram oxalate 10 mg tablet 10 mg PO DAILY 08/13/20 [History Last Taken 08/13/20 06:00] nitroglycerin 0.4 mg sublingual tablet 0.4 mg sublingual Q5M PRN chest pain #30 tabs 08/14/20 [Rx Last Taken Unknown] amlodipine 2.5 mg tablet 2.5 mg PO DAILY #90 tabs 03/10/21 [Rx Last Taken Unknown] lisinopril 10 mg tablet 10 mg PO DAILY BP #90 tabs 03/10/21 [Rx Last Taken Unknown] cyclobenzaprine 10 mg tablet 10 mg PO TID PRN 06/22/21 [History Last Taken Unknown] promethazine 25 mg tablet 25 mg PO TID PRN 06/22/21 [History Last Taken Unknown] nitrofurantoin monohydrate/macrocrystals 100 mg capsule (Macrobid) 100 mg PO Q12H 5 days #10 caps 09/16/21 [Rx Last Taken Unknown] Allergy/AdvReac Type Severity Reaction Status Date / Time isosorbide AdvReac Intermediate severe Verified 09/16/21 09:19 headache Family History Father Hemochromatosis Hypertension Heart disease CAD (coronary artery disease), Onset Age: 40 CABG Mother Hypertension Aunt Hemochromatosis Uncle Hemochromatosis Other Myocardial infarction Surgical History History of tonsillectomy History of tubal ligation PORT PLACEMENT Social History Smoking Status: Current every day smoker tobacco type: cigarettes substance use type: marijuana ROS ROS ED Constitutional Constitutional ED: Denies fever(s) ENT ENT ED: Denies rhinorrhea Cardiovascular Cardiovascular: Denies chest pain Respiratory/Chest Respiratory/Chest: Denies cough Gastrointestinal Gastrointestinal: Reports abdominal pain and nausea; Denies constipation, diarrhea, melena or vomiting Genitourinary Genitourinary ED: Denies dysuria Musculoskeletal Musculoskeletal: Reports back pain Integumentary Denies rash Neurologic Neurologic: Denies headache(s) Psychiatric Psychiatric: Denies suicidal ideation EXAM Physical Exam Const Vital Signs: 09/16/21 09:17 Temperature 96.8 F L Temperature Source Temporal Pulse Rate 76 Respiratory Rate 16 Blood Pressure 141/85 H Blood Pressure Mean 103 Pulse Ox 100 Oxygen Delivery Method Room Air Positive well nourished and well developed General Appearance ED: well developed HEENT Reports moist mucous membranes Chest Wall inspection of chest normal Resp normal respiratory effort and clear to auscultation bilaterally Cardio regular rate and regular rhythm GI normal to inspection, nondistended, normoactive bowel sounds Palpation: soft and tender RLQ; Negative for guarding or rebound tenderness present Extremity normal to inspection Neuro oriented x3 Psych mental status grossly normal Skin no rashes or lesions noted MDM MDM MDM Narrative Medical decision making narrative: Patient was given IV fluids, morphine, Zofran. CBC, chemistries are unremarkable. Lipase is normal. Urinalysis shows 25-[address] abdomen pelvis shows small right inguinal hernia containing fat, moderate fecal material right hemicolon. Patient is feeling much improved on reevaluation. She is given prescription for Macrobid. Advised to follow-up with primary care physician. Advised to return to the ED for worsening complaints. Lab Data Attestation: I reviewed the patient's lab results. Labs: Laboratory Results - last 24 hr 09/16/21 09/16/21 09/16/21 09:37 09:55 09:55 WBC 4.7 RBC 4.42 Hgb 11.2 L Hct 35.1 L MCV 79.4 L MCH 25.3 L MCHC 31.9 L RDW Std Deviation 55.3 H RDW Coeff of Skip 19.1 H Plt Count 195 MPV 10.9 Immature Gran % (Auto) 0.400 Neut % (Auto) 51.9 Lymph % (Auto) 37.6 Johnston % (Auto) 7.6 Eos % (Auto) 1.7 Baso % (Auto) 0.8 Absolute Neuts (auto) 2.5 Absolute Lymphs (auto) 1.78 Nucleated RBC % 0 Sodium 139 Potassium 3.8 Chloride 108 H Carbon Dioxide 26.0 Anion Gap 5 BUN 12 Creatinine 0.69 Estim Creat Clear Calc 84.23 Est GFR (MDRD) Af Amer 115 Est GFR (MDRD) Non-Af 95 BUN/Creatinine Ratio 17.3 Glucose 90 Calcium 8.5 Total Bilirubin 0.20 AST 15 ALT 16 Alkaline Phosphatase 100 Total Protein 7.1 Albumin 3.5 Globulin 3.6 Albumin/Globulin Ratio 1.0 Lipase 124 Urine Color Yellow Urine Clarity Sl. Cloudy Urine pH 5.0 Ur Specific Slater 1.025 Urine Protein 15 H Urine Glucose (UA) Normal Urine Ketones Negative Urine Occult Blood Negative Urine Nitrite Negative Urine Bilirubin Negative Urine Urobilinogen Normal Ur Leukocyte Esterase 100 H Urine RBC 0 SEEN Urine WBC 25-50 SEEN Ur Squamous Epith Cells 0 SEEN Urine Bacteria 3+ Urine Mucus 0 SEEN Radiography Diagnostic Testing: Clinical Impression(s) from Imaging Studies Abdomen/Pelvis CT 09/16/21 09:30 IMPRESSION: Small right inguinal hernia containing fat. Moderate amount of fecal material is seen in the right hemicolon. Diffuse gastric wall thickening although the stomach is not adequately distended. Electronically Signed: Dalton Michel MD at 10:49 EDT , Discharge Plan Triage Chief Complaint: Abd Pain ED Provider: Michelle Laureano Dx/Rx/DC Orders Clinical Impression: Abdominal pain Instructions: ED Abdominal Pain Unkn Cause Fem Prescriptions: New nitrofurantoin monohyd/m-cryst [Macrobid] 100 mg capsule 100 mg PO Q12H 5 Days Qty: 10 0RF Rx Instructions: must administer with a meal/food No Action lisinopril 10 mg tablet 10 mg PO DAILY Qty: 90 3RF amlodipine 2.5 mg tablet 2.5 mg PO DAILY Qty: 90 3RF promethazine 25 mg tablet 25 mg PO TID PRN cyclobenzaprine 10 mg tablet 10 mg PO TID PRN omeprazole 20 MG capsule 20 mg PO DAILY folic acid 1 MG tablet 1 mg PO DAILY@0800 escitalopram oxalate 10 mg tablet 10 mg PO DAILY Label Comments: TAKE 1 TABLET BY MOUTH EVERY DAY nitroglycerin 0.4 mg tablet, sublingual 0.4 mg sublingual Q5M PRN (Reason: chest pain) Qty: 30 0RF Rx Instructions: do not exceed 3 doses per episode Primary Care Provider: Cam Crane Referrals: Cam Crane MD [Primary Care Provider] - Disposition Disposition: Home, Self Care
[2021-09-16 09:43] LABS: Mucous, Urine 0 SEEN /hpf (<or=2+); Red Blood Cells-Urine 0 SEEN /hpf (0-5); Squamous Epithelial Cells - UA 0 SEEN /hpf (5-10)
[2021-09-16 09:46] LABS: Color, Urine Yellow (Yellow); Glucose, Dipstick Normal (Normal); Ketone-Dipstick Negative (Negative); Leukocyte Esterase-Dipstick 100 /ul (Negative); Nitrite-Dipstick Negative (Negative); Occult Blood-Urine Negative /ul (Negative); Protein-Dipstick 15 mg/dl (Negative); Specific Gravity, Urine 1.025 (1.002-1.030); Urine Bilirubin Dipstick Negative (Negative); Urine Clarity Sl. Cloudy (Clear); Urine Urobilinogen Normal (Normal)
[2021-09-16 09:59] LABS: Absolute Lymphocyte Count 1.78 X10^3/uL (0.83-4.51); Absolute Neutrophil Count 2.5 X10^3/uL (2.0-7.7); Basophil# 0.04 X10^3/uL; Basophil% 0.8 % (0-1); Eosinophil# 0.08 X10^3/uL; Eosinophils% 1.7 % (0-5); Hematocrit 35.1 % (37-47); Hemoglobin 11.2 g/dL (12.0-15.0); Lymphocyte # 1.78 X10^3/ul (0.83-4.51); Lymphocyte % 37.6 % (19-41); Mean Corp Hgb Conc 31.9 g/dL (32-36); Mean Corpuscular Hgb 25.3 pg (27.0-32.0); Mean Corpuscular Volume 79.4 fL (81-99); Mean Platelet Vol. 10.9 fl (6.2-12.0); Monocyte# 0.36 X10^3/uL; Monocyte% 7.6 % (0-10); NRBC Flagged by Analyzer 0 % (0-5); Neutrophil # 2.46 X10^3/uL (2.7-7.7); Neutrophil % 51.9 % (47-70); Platelet Count 195 K/mm3 (150-450); RBC Distribution Width CV 19.1 % (11.6-14.6); RBC Distribution Width SD 55.3 fl (35.1-43.9); Red Blood Count 4.42 M/mm3 (4.2-5.4); White Blood Count 4.7 K/mm3 (4.4-11.0)
[2021-09-16] MEDS: Morphine 4 MG/ML Syringe IV (10:05)
[2021-09-16] MEDS: Ondansetron 4 MG/2 ML Vial IV (10:05)
[2021-09-16] MEDS: 0.9% Normal Saline 1,000 ML 1000 ML IV (10:05)
[2021-09-16 10:15] LABS: AST(SGOT) 15 U/L (15-37); Alanine Aminotransfer ALT/SGPT 16 U/L (13-56); Albumin, Serum 3.5 g/dL (3.2-5.0); Alkaline Phosphatase 100 U/L (45-117); Anion Gap 5 (5-15); BUN 12 mg/dL (7-18); BUN/Creat Ratio 17.3 RATIO (10-20); Calcium,Total 8.5 mg/dL (8.5-10.1); Chloride 108 mmol/L (98-107); Creatinine, Serum 0.69 mg/dL (0.55-1.02); EST Glomerular Filtration Rate 95 mL/min (>60); Est Glom Filt Rate - Afr Amer 115 mL/min (>60); Estimated Creatinine Clearance 84.23 ml/min; Globulin 3.6 g/dL (2.2-4.2); Glucose 90 mg/dL (74-106); Lipase 124 U/L (73-393); Potassium 3.8 mmol/L (3.5-5.1); Protein, Total 7.1 g/dL (6.4-8.2); Sodium Level 139 mmol/L (136-145)
[2021-09-16 10:20] LABS: Bacteria 3+ /hpf (None Seen); White Blood Cells 25-50 SEEN /hpf (0-5)
== END 2021-09-16 11:41 | disposition home or self-care (01) ==
PROVIDERS: Emergency Provider Emergency Medicine; PCP Family Medicine; Visit Provider Emergency Medicine
DX: R10.31 Right lower quadrant pain (principal); I10 Essential (primary) hypertension; F17.210 Nicotine dependence, cigarettes, uncomplicated; K21.9 Gastro-esophageal reflux disease without esophagitis; E66.9 Obesity, unspecified; Z68.35 Body mass index [BMI] 35.0-35.9, adult; Z79.899 Other long term (current) drug therapy
CPT/HCPCS: 36591; 74177; 80053; 81001; 83690; 85025; 96361; 96374; 96375; 99284; J7030; Q9967; A4216; J2405

== ENCOUNTER 2022-12-04 12:27 | Emergency (ER) | payer MEDICAID, SELFPAY ==
[2022-12-04 12:28] VITALS: BP 164/85; PULSE 70; RESP 16; TEMP 35.6; O2SAT 99; BMI 37.2
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
== END 2022-12-04 14:27 | disposition home or self-care (01) ==
PROVIDERS: Emergency Provider Emergency Medicine; PCP Family Medicine; Visit Provider Emergency Medicine
DX: S16.1XXA Strain of muscle, fascia and tendon at neck level, initial encounter (principal); R51.9 Headache, unspecified; F17.210 Nicotine dependence, cigarettes, uncomplicated; F12.90 Cannabis use, unspecified, uncomplicated; V43.52XA Car driver injured in collision with other type car in traffic accident, initial encounter
CPT/HCPCS: 70450; 72125; 99282

== ENCOUNTER 2023-08-25 08:10 | Emergency (ER) | payer BC, SELFPAY ==
[2023-08-25 08:11] VITALS: BP 160/98; PULSE 83; RESP 14; TEMP 36.1; O2SAT 97; BMI 41.3
--- NOTE | 2023-08-25 08:32 | EKG12_ITS ---
Test Reason : Blood Pressure : / mmHG Vent. Rate : 070 BPM Atrial Rate : 070 BPM P-R Int : 180 ms QRS Dur : 082 ms QT Int : 388 ms P-R-T Axes : 043 048 047 degrees QTc Int : 419 ms Normal sinus rhythm Normal ECG Confirmed by CONCHIS RODRIGUEZ, MAHIN ([id number]), assistant film editor DIAMANTE HAND ([id number]) on 08/29/2023 11:41:53 AM Referred By: Confirmed By:MAHIN BALDERRAMA MD
--- NOTE | 2023-08-25 08:33 | ED.VIS.CHEST ---
HPI History of Present Illness Chief Complaint: Chest Pain Informant: patient and EMS Narrative Narrative: 53-year-old female presenting to the emergency room with 1 hour of chest pressure and left arm heaviness. Patient states that she woke this morning in her usual state of health. She states that she was driving into work when she developed pressure in the left upper chest and her left arm felt heavy. She felt nauseated and developed a headache. She attempted to work but could not. She states that symptoms are somewhat better but still present. She notes that she has a history of hypertension and is concerned that her blood pressure is elevated currently (160/98 on arrival in ED). Patient states she has had symptoms like this in the past. She states that nothing has been found. She states she has had prior stress testing last stress test she believes was about 5 years ago. She sees [facility] for primary care. She also notes a history of tobacco use, hemochromatosis, and hyperlipidemia. [facility] Medical History Marijuana use Obesity Snoring Anxiety Depression Substance abuse Nicotine dependence Essential (primary) hypertension Gastroesophageal reflux disease without esophagitis Hemochromatosis Obesity (BMI 30-39.9) Home Medications ?Medication ?Instructions ?Recorded ?Last Taken ?Type folic acid 1 mg tablet 1 mg PO DAILY@0800 supplement 08/04/17 08/13/20 06:00 History omeprazole 20 mg capsule,delayed 20 mg PO DAILY acid reflex 08/04/17 08/13/20 06:00 History release escitalopram oxalate 10 mg tablet 10 mg PO DAILY 08/13/20 08/13/20 06:00 History nitroglycerin 0.4 mg sublingual 0.4 mg sublingual Q5M PRN chest 08/14/20 Unknown Rx tablet pain #30 tabs lisinopril 10 mg tablet 10 mg PO DAILY BP #90 tabs 03/10/21 Unknown Rx Adacel(Tdap Adolesn/Adult)(PF) 0.5 ml IM ONCE #0.5 mL 08/03/22 Unknown Clinic 2Lf-(2.5-5-3-5mcg)-5 Lf/0.5 mL IM susp (diph,pertuss(acel),tet vac(PF)) cyclobenzaprine 10 mg tablet 10 mg PO TID PRN Muscle Spasm #15 12/04/22 Unknown Rx TABLETS ibuprofen 600 mg tablet 600 mg PO Q8H PRN PRN pain #20 12/04/22 Unknown Rx TABLETS Allergy/AdvReac Type Severity Reaction Status Date / Time isosorbide AdvReac Intermediate severe Verified 08/25/23 08:11 headache Family History Father Hemochromatosis Hypertension Heart disease CAD (coronary artery disease), Onset Age: 40 CABG Mother Hypertension Aunt Hemochromatosis Uncle Hemochromatosis Other Myocardial infarction Surgical History PORT PLACEMENT History of tubal ligation History of tonsillectomy Social History Smoking Status: Current every day smoker tobacco type: cigarettes substance use type: marijuana ROS ROS ED Constitutional Constitutional ED: Denies chills, fever(s) or weight loss Eyes Eyes: Denies change in vision or diplopia ENT ENT ED: Denies ear pain, rhinorrhea or sore throat Cardiovascular Cardiovascular: Reports chest pain; Denies orthopnea, palpitations or racing heartbeat Respiratory/Chest Respiratory/Chest: Denies cough, dyspnea or orthopnea Gastrointestinal Gastrointestinal: Reports nausea; Denies abdominal pain, diarrhea or vomiting Genitourinary Genitourinary ED: Denies dysuria, hematuria or urinary frequency Musculoskeletal Musculoskeletal: Reports other Details: See history of present illness ; Denies arthralgias, back pain or myalgias Integumentary Denies abscess or rash Neurologic Neurologic: Denies headache(s) or weakness Psychiatric Psychiatric: Denies anxiety, depression, suicidal ideation or suicidal thoughts Endocrine Endocrinology: Denies polydipsia, polyphagia or polyuria Allergic/Immunologic Allergic/Immunologic ED: Denies mouth swelling, tongue swelling or urticaria EXAM Physical Exam Const Vital Signs: 08/25/23 08:11 08/25/23 08:15 08/25/23 09:10 Temperature 96.9 F L Temperature Source Temporal Pulse Rate 83 70 Respiratory Rate 14 16 Respiratory Effort Normal Non-Labored Respiratory Pattern Normal Blood Pressure 160/98 H 137/84 H Blood Pressure Mean 118 101 Pulse Ox 97 99 Oxygen Delivery Method Room Air Room Air 08/25/23 10:00 08/25/23 11:00 Temperature Temperature Source Pulse Rate 70 70 Respiratory Rate 16 16 Respiratory Effort Respiratory Pattern Blood Pressure 136/82 H 126/76 H Blood Pressure Mean 100 92 Pulse Ox 99 99 Oxygen Delivery Method Room Air Room Air Positive well nourished, well developed and obese General Appearance ED: well developed and NAD Nutritional Appearance: obese HEENT Reports normocephalic, head/scalp atraumatic and moist mucous membranes Eyes PERRL and EOMs intact bilaterally Neck no lymphadenopathy, supple and no JVD Resp normal respiratory effort and clear to auscultation bilaterally Cardio regular rate, regular rhythm and no murmurs GI normal to inspection, nondistended, normoactive bowel sounds and non-tender Palpation: soft Back/Spine no CVA tenderness and normal ROM Extremity normal to inspection General Extremety ED: Negative for edema General Extremity: Negative for edema Neuro oriented x3 and CN's II-XII intact bilaterally Sensorium / Orientation: alert Motor Exam: strength 5/5 throughout Psych mental status grossly normal Mood & Affect: Negative for depressed or tearful Skin no rashes or lesions noted and no wounds MDM MDM MDM Narrative Medical decision making narrative: Differential diagnosis includes but not limited to ACS, pneumothorax, aortic dissection, pleural effusion, aortic aneurysm, pulmonary embolism, musculoskeletal spasm and pain, esophagitis. EKG shows a sinus rhythm with no ischemic ST segments. 2 sets of cardiac enzymes are normal. White count 4.2 with a hemoglobin of 11.8. Platelet count is 189. D-dimer is elevated 1.96. Glucose of 110 creatinine 0.71 potassium 3.4. My independent interpretation of the chest x-ray is no acute process normal mediastinal silhouette. CTA of the chest does not demonstrate any aortic dissection or aneurysm. No obvious pulmonary embolism. Patient was allowed to rest and was given aspirin. Her blood pressures come down on its own. She is feeling much better no longer having symptoms. At this point difficult to exactly say what her symptoms were caused from could be muscle spasm. I recommend the patient follow-up with primary care return if worsening or concerns History & Record Review Discussion w/independent historian: EMS personnel and Patient Lab Data Attestation: I reviewed the patient's lab results. Labs: Laboratory Results - last 24 hr 08/25/23 08/25/23 09:05 11:25 WBC 4.2 L RBC 4.71 Hgb 11.8 L Hct 38.4 MCV 81.5 MCH 25.1 L MCHC 30.7 L RDW Std Deviation 53.6 H RDW Coeff of Skip 18.0 H Plt Count 189 MPV 11.0 Immature Gran % (Auto) 0.200 Neut % (Auto) 52.7 Lymph % (Auto) 36.8 [place] % (Auto) 7.2 Eos % (Auto) 1.9 Baso % (Auto) 1.2 H Absolute Neuts (auto) 2.2 Absolute Lymphs (auto) 1.54 Nucleated RBC % 0 D-Dimer Quant (PE/DVT) 1.96 H* Sodium 139 Potassium 3.4 L Chloride 107 Carbon Dioxide 27.0 Anion Gap 5 BUN 10 Creatinine 0.71 Estim Creat Clear Calc 111.94 Est GFR (MDRD) Af Amer 112 Est GFR (MDRD) Non-Af 92 BUN/Creatinine Ratio 14.1 Glucose 110 H Calcium 8.7 Troponin I High Sens 4 3 Radiography Diagnostic Testing: Clinical Impression(s) from Imaging Studies Chest X-Ray 08/25/23 09:15 IMPRESSION: No acute abnormality is seen. Electronically Signed: Dalton Michel MD at 9:47 EDT , Chest CTA 08/25/23 10:10 IMPRESSION: Normal CTA chest examination, without a demonstrated pulmonary embolism or arterial dissection. Electronically Signed: Dalton Michel MD at 10:25 EDT , EKG Initial EKG: Attestation: I personally reviewed and interpreted this EKG as follows: Comments: Normal sinus rhythm ventricular rate of 70 bpm. No concerning features of ACS noted. Prior EKG tracings: available for review Prior: Unchanged (08 September 2020) Discharge Plan Triage Chief Complaint: Chest Pain ED Provider: Darshan Quesada Dx/Rx/DC Orders Clinical Impression: Essential (primary) hypertension, Chest pain Instructions: ED Chest Pain, Uncertain Cause Prescriptions: No Action lisinopril 10 mg tablet 10 mg PO DAILY Qty: 90 3RF diph,pertuss(acel),tet vac(PF) [Adacel(Tdap Adolesn/Adult)(PF)] 2 Lf-(2.5-5-3-5 mcg)-5Lf/0.5 mL suspension 0.5 ml IM ONCE Qty: 0.5 0RF omeprazole 20 MG capsule 20 mg PO DAILY folic acid 1 MG tablet 1 mg PO DAILY@0800 escitalopram oxalate 10 mg tablet 10 mg PO DAILY Patient Comments: TAKE 1 TABLET BY MOUTH EVERY DAY nitroglycerin 0.4 mg tablet, sublingual 0.4 mg sublingual Q5M PRN (Reason: chest pain) Qty: 30 0RF Rx Instructions: do not exceed 3 doses per episode cyclobenzaprine [cyclobenzaprine] 10 mg tablet 10 mg PO TID PRN (Reason: Muscle Spasm) Qty: 15 0RF ibuprofen 600 mg tablet 600 mg PO Q8H PRN PRN (Reason: pain) Qty: 20 0RF Primary Care Provider: Cam Crane Referrals: Cam Crane MD [Primary Care Provider] - 1-2 Weeks Print Language: Uruguayan Disposition Disposition: Home, Self Care
[2023-08-25 09:10] VITALS: BP 137/84; PULSE 70; RESP 16; O2SAT 99
[2023-08-25] MEDS: Aspirin 81 MG TAB.CHEW 324 MG PO (09:10)
--- NOTE | 2023-08-25 09:15 | RAD_ITS ---
STUDY: X-RAY CHEST REASON FOR EXAM: Female, 53 years old. Chest pain TECHNIQUE: Single AP portable view of the chest. COMPARISON: Comparison is made with prior study September 08, 2020. FINDINGS: A right-sided portacatheter is seen with the tip at the junction of the superior vena cava and right atrium. Hyperinflation. Scattered calcified granulomas. No acute abnormality is seen. There is no demonstrated pleural abnormality. Normal size heart. Normal mediastinum and humberto. Normal visualized pulmonary arteries. Normal visualized aortic arch and descending thoracic aorta. There are degenerative changes of the visualized thoracic spine. Normal visualized ribs, clavicles, and shoulders. There is no demonstrated abnormality of the visualized soft tissue structures of the upper abdomen. RAD/Chest 1 View (Portable) IMPRESSION: No acute abnormality is seen. Electronically Signed: Dalton Michel MD at 9:47 EDT ,
[2023-08-25 09:22] LABS: Absolute Lymphocyte Count 1.54 X10^3/uL (0.83-4.51); Absolute Neutrophil Count 2.2 X10^3/uL (2.0-7.7); Basophil# 0.05 X10^3/uL; Basophil% 1.2 % (0-1); Eosinophil# 0.08 X10^3/uL; Eosinophils% 1.9 % (0-5); Hematocrit 38.4 % (37-47); Hemoglobin 11.8 g/dL (12.0-15.0); Lymphocyte # 1.54 X10^3/ul (0.83-4.51); Lymphocyte % 36.8 % (19-41); Mean Corp Hgb Conc 30.7 g/dL (32-36); Mean Corpuscular Hgb 25.1 pg (27.0-32.0); Mean Corpuscular Volume 81.5 fL (81-99); Monocyte% 7.2 % (0-10); NRBC Flagged by Analyzer 0 % (0-5); Neutrophil # 2.21 X10^3/uL (2.7-7.7); Neutrophil % 52.7 % (47-70); Platelet Count 189 K/mm3 (150-450); RBC Distribution Width SD 53.6 fl (35.1-43.9); Red Blood Count 4.71 M/mm3 (4.2-5.4); White Blood Count 4.2 K/mm3 (4.4-11.0)
[2023-08-25 09:37] LABS: Anion Gap 5 (5-15); BUN 10 mg/dL (7-18); BUN/Creat Ratio 14.1 RATIO (10-20); Calcium,Total 8.7 mg/dL (8.5-10.1); Chloride 107 mmol/L (98-107); Creatinine, Serum 0.71 mg/dL (0.55-1.02); EST Glomerular Filtration Rate 92 mL/min (>60); Est Glom Filt Rate - Afr Amer 112 mL/min (>60); Estimated Creatinine Clearance 111.94 ml/min; Glucose 110 mg/dL (74-106); Potassium 3.4 mmol/L (3.5-5.1); Sodium Level 139 mmol/L (136-145); Troponin-I HS (w/2H Reflex) 4 pg/mL (3.0-54.0)
[2023-08-25 09:46] LABS: D-Dimer Quantitative (DVT/PE) 1.96 FEU/ug/m (0.27-0.49)
[2023-08-25 10:00] VITALS: BP 136/82; PULSE 70; RESP 16; O2SAT 99
--- NOTE | 2023-08-25 10:10 | CT_ITS ---
STUDY: CTA CHEST REASON FOR EXAM: Female, 53 years old. Pulmonary embolism, elevated d dimer RADIATION DOSAGE (If Supplied By Facility): CTDIvol = ( 12.42 ) mGy, DLP = ( 528.96 ) mGycm TECHNIQUE: The examination was performed with the intravenous administration of IV 100mL [id number]-370. Post-processing of the angiographic images was performed, with multiplanar reformation and 3D reconstruction. Individualized dose optimization techniques were used for this CT. COMPARISON: Comparison is made with prior chest radiograph done earlier today. FINDINGS: Normal enhancement of the main pulmonary artery and right and left pulmonary arteries. Normal enhancement of the bilateral peripheral pulmonary arteries. There is no demonstrated pulmonary embolism. Normal thoracic aorta and visualized great vessels. There is no demonstrated aortic dissection. Normal heart and pericardium. No significant coronary artery calcification is seen. There are visualized mediastinal lymph nodes, which are within normal size limits, and with normal morphology. Normal hilar regions. Normal visualized trachea and bronchi. The lungs are well expanded. Minimal linear scarring at the lung bases. Tiny calcified granulomas in the posterior medial segment of the right lower lobe. Normal pleura. Normal chest wall structures. There are degenerative changes of thoracic spine. Normal visualized upper abdomen. CT/CTA Chest W/WO Contrast IMPRESSION: Normal CTA chest examination, without a demonstrated pulmonary embolism or arterial dissection. Electronically Signed: Dalton Michel MD at 10:25 EDT ,
[2023-08-25 11:00] VITALS: BP 126/76; PULSE 70; RESP 16; O2SAT 99
[2023-08-25 11:16] LABS: Reflex Troponin-HS? (from REC) Y
[2023-08-25 11:53] LABS: Troponin-I HS 3 pg/mL (3.0-54.0)
[2023-08-25 12:00] VITALS: BP 124/72; PULSE 70; RESP 16; O2SAT 99
[2023-08-25 13:07] VITALS: BP 101/69; PULSE 65; RESP 16; TEMP 36.6; O2SAT 99
== END 2023-08-25 13:09 | disposition home or self-care (01) ==
PROVIDERS: Emergency Provider Emergency Medicine; PCP Family Medicine; Visit Provider Emergency Medicine
DX: I10 Essential (primary) hypertension (principal); R07.9 Chest pain, unspecified; F17.210 Nicotine dependence, cigarettes, uncomplicated; F12.90 Cannabis use, unspecified, uncomplicated
CPT/HCPCS: 71045; 71275; 80048; 84484; 85025; 85379; 93005; 99283; Q9967; A4216

== ENCOUNTER 2024-03-25 22:13 | Emergency (ER) | payer BC, SELFPAY ==
[2024-03-25 22:13] VITALS: BP 129/89; PULSE 79; RESP 17; TEMP 36.6; O2SAT 97; BMI 37.2
--- NOTE | 2024-03-25 22:25 | EDS_ITS ---
HPI History of Present Illness Chief Complaint: Suicidal [facility] Medical History Marijuana use Obesity Snoring Anxiety Depression Substance abuse Nicotine dependence Essential (primary) hypertension Gastroesophageal reflux disease without esophagitis Hemochromatosis Obesity (BMI 30-39.9) Home Medications ?Medication ?Instructions ?Recorded ?Last Taken ?Type folic acid 1 mg tablet 1 mg PO DAILY@0800 supplement 08/04/17 08/13/20 06:00 History omeprazole 20 mg capsule,delayed 20 mg PO DAILY acid reflex 08/04/17 08/13/20 06:00 History release escitalopram oxalate 10 mg tablet 10 mg PO DAILY 08/13/20 08/13/20 06:00 History nitroglycerin 0.4 mg sublingual 0.4 mg sublingual Q5M PRN chest 08/14/20 Unknown Rx tablet pain #30 tabs lisinopril 10 mg tablet 10 mg PO DAILY BP #90 tabs 03/10/21 Unknown Rx Adacel(Tdap Adolesn/Adult)(PF) 0.5 ml IM ONCE #0.5 mL 08/03/22 Unknown Clinic 2Lf-(2.5-5-3-5mcg)-5 Lf/0.5 mL IM susp (diph,pertuss(acel),tet vac(PF)) cyclobenzaprine 10 mg tablet 10 mg PO TID PRN Muscle Spasm #15 12/04/22 Unknown Rx TABLETS ibuprofen 600 mg tablet 600 mg PO Q8H PRN PRN pain #20 12/04/22 Unknown Rx TABLETS albuterol sulfate 90 mcg/actuation inhalation 03/25/24 Unknown History aerosol inhaler Allergy/AdvReac Type Severity Reaction Status Date / Time isosorbide AdvReac Intermediate severe Verified 03/25/24 22:13 headache Family History Father Hemochromatosis Hypertension Heart disease CAD (coronary artery disease), Onset Age: 40 CABG Mother Hypertension Aunt Hemochromatosis Uncle Hemochromatosis Other Myocardial infarction Surgical History PORT PLACEMENT History of tubal ligation History of tonsillectomy Social History Smoking Status: Current every day smoker tobacco type: cigarettes substance use type: marijuana EXAM Physical Exam Const Vital Signs: 03/25/24 22:13 03/25/24 23:13 03/26/24 00:00 Temperature 97.9 F Temperature Source Temporal Pulse Rate 79 78 62 Respiratory Rate 17 14 12 Blood Pressure 129/89 H 120/80 116/60 Blood Pressure Mean 102 93 78 Pulse Ox 97 95 98 Oxygen Delivery Method Room Air Room Air Room Air 03/26/24 01:00 03/26/24 02:00 Temperature Temperature Source Pulse Rate 73 68 Respiratory Rate 18 18 Blood Pressure 127/89 H 127/89 H Blood Pressure Mean 101 101 Pulse Ox 98 98 Oxygen Delivery Method Room Air Room Air MDM MDM MDM Narrative Medical decision making narrative: HISTORY OF PRESENT ILLNESS: 51-year-old female presents with suicidal ideation and depression. Notes recent stressor in the setting of her leaving her for her best friend. She notes history of suicidal ideation as a teenager. She states [] REVIEW OF SYSTEMS: Pertinent positives: Suicidal ideation, depression, chest pain Pertinent negatives: PHYSICAL EXAM: Nursing triage notes reviewed, Vital signs reviewed Constitutional: please see mdm HENT: MMM Eyes: Pupils equal round and reactive to light, Extraocular muscles intact Neck: No stridor, no JVD, full neck ROM Lungs: Clear to auscultation, No wheezing or rales. No increased work of breathing, no conversational dyspnea, no accessory muscle use, no nasal flaring. No respiratory distress noted Heart: Regular rate and rhythm, No murmurs, No rubs and No gallops, 2+ distal pulses (radial, femoral, posterior tibial) in all extremities Abdomen: Soft, there is no tenderness, rigidity, rebound or guarding, no obvious peritoneal signs, no palpable pulsatile abdominal masses, no auscultated abdominal bruit : No CVAT Extremities: No edema Neuro: No new focal neurological deficits, cranial nerves II through XII intact, 5/5 strength in all present extremities. Intact sensation to light touch in all present extremities, 2+ reflexes bilateral patella tendons. Skin: No rash or lesions noted Psych: Tearful, emotional, goal-directed thought process, the patient does not appear t to be responding to internal stimuli MEDICAL DECISION MAKING: Chief Complaint: Suicidal ideation External records reviewed: Reviewed prior ED visits Factors affecting care: Depression, hyperlipidemia, hypertension, Social determinants of health: nicotine dependence, marijuana use History obtained from others: Behavioral health/social work Consults: none MDM Narrative: The patient was initially hemodynamically stable, afebrile and nontoxic- appearing. Exam without focal cardiopulmonary abnormalities. Given the patient's report of chest discomfort did obtain an EKG additional labs including troponin EKG with normal sinus rhythm, normal axis, normal intervals, no STEMI High-sensitivity troponin is negative, no evidence of myocardial ischemiax2 BMP with mild hypokalemia which was replaced, no other significant electrolyte maladies, no acute kidney injury Urine tox screen positive for cannabinoids CBC without leukocytosis, severe anemia, no thrombocytopenia. Given report of SI and depression medical clearance labs were obtained. Behavioral health was consulted. After behavioral health evaluate the patient they agreed the patient could undergo close outpatient follow-up. Care plan was made. Patient was reassessed. She denied suicidal ideation. Denied homicidal ideation or auditory visual hallucinations. She contracted safety and was future oriented. She is appropriate discharge home. The patient and/or family, caregivers express understanding. The patient and/or family, caregivers agrees with the plan. Shared decision making: I will have a discussion with the patient and or visitors regarding risk/benefits of further testing or admission. They will be made aware of of the risk/benefits inherent in this decision they will be given the opportunity to voice understanding. Total critical care time today provided was at least 0 minutes. This excludes separately billable procedures. Critical care time (if documented) is secondary to the patient having high probability of clinically significant/life threatening deterioration in the patient's condition which required my urgent intervention. Impression: 1. Suicidal ideation 2. Depression Dispo: Discharge home This note was generated with [employer] dictation software. It may contain incorrect words, spelling, and punctuation that were not noted in review of the chart prior to signing. Lab Data Labs: Laboratory Results - last 24 hr 03/25/24 03/25/24 03/26/24 22:30 22:40 :25 WBC 7.6 RBC 4.97 Hgb 12.9 Hct 40.3 MCV 81.1 MCH 26.0 L MCHC 32.0 RDW Std Deviation 49.5 H RDW Coeff of Skip 16.8 H Plt Count 233 MPV 10.9 Immature Gran % (Auto) 0.400 Neut % (Auto) 59.4 Lymph % (Auto) 32.7 [place] % (Auto) 5.7 Eos % (Auto) 1.1 Baso % (Auto) 0.7 Absolute Neuts (auto) 4.5 Absolute Lymphs (auto) 2.48 Nucleated RBC % 0 Sodium 138 Potassium 2.8 L Chloride 105 Carbon Dioxide 27.0 Anion Gap 6 BUN 7 Creatinine 0.77 Estim Creat Clear Calc 97.33 Est GFR (MDRD) Af Amer 100 Est GFR (MDRD) Non-Af 83 BUN/Creatinine Ratio 9.0 L Glucose 100 Calcium 9.0 Troponin I High Sens 4 4 Urine Opiates Screen NEGATIVE Urine Methadone Screen NEGATIVE Ur Barbiturates Screen NEGATIVE Ur Phencyclidine Scrn NEGATIVE Ur Amphetamines Screen NEGATIVE MDMA (Ecstasy) Screen NEGATIVE U Benzodiazepines Scrn NEGATIVE Urine Cocaine Screen NEGATIVE U Cannabinoids Screen POSITIVE H Ur Drug Screen Comment Ethyl Alcohol < 3.0 Discharge Plan Triage Chief Complaint: Suicidal ED Provider: Hong Jordan Dx/Rx/DC Orders Instructions: ED Depression Prescriptions: No Action lisinopril 10 mg tablet 10 mg PO DAILY Qty: 90 3RF diph,pertuss(acel),tet vac(PF) [Adacel(Tdap Adolesn/Adult)(PF)] 2 Lf-(2.5-5-3-5 mcg)-5Lf/0.5 mL suspension 0.5 ml IM ONCE Qty: 0.5 0RF omeprazole 20 MG capsule 20 mg PO DAILY folic acid 1 MG tablet 1 mg PO DAILY@0800 escitalopram oxalate 10 mg tablet 10 mg PO DAILY Patient Comments: TAKE 1 TABLET BY MOUTH EVERY DAY nitroglycerin 0.4 mg tablet, sublingual 0.4 mg sublingual Q5M PRN (Reason: chest pain) Qty: 30 0RF Rx Instructions: do not exceed 3 doses per episode cyclobenzaprine [cyclobenzaprine] 10 mg tablet 10 mg PO TID PRN (Reason: Muscle Spasm) Qty: 15 0RF ibuprofen 600 mg tablet 600 mg PO Q8H PRN PRN (Reason: pain) Qty: 20 0RF albuterol sulfate 90 mcg/actuation HFA aerosol inhaler inhalation Primary Care Provider: Cam Crane Referrals: Cam Crane MD [Primary Care Provider] - Activity Restrictions/Additional Instructions: Thank you for trusting us with your care today! Please return to the emergency department if your symptoms change or worsen. Please follow with your primary care physician for further outpatient evaluation and management. Print Language: Vietnamese Disposition Disposition: Home, Self Care
--- NOTE | 2024-03-25 22:43 | EKG12_ITS ---
Test Reason : CP Blood Pressure : */* mmHG Vent. Rate : 73 BPM Atrial Rate : 73 BPM P-R Int : 180 ms QRS Dur : 82 ms QT Int : 400 ms P-R-T Axes : 46 41 36 degrees QTcB Int : 440 ms Normal sinus rhythm Normal ECG Confirmed by CONCHIS RODRIGUEZ, MAHIN ([id number]), loan expeditor JAKE BLUE ([id number]) on 03/27/2024 9:18:34 AM Referred By: Confirmed By: MAHIN BALDERRAMA MD
[2024-03-25 22:59] LABS: Absolute Lymphocyte Count 2.48 X10^3/uL (0.83-4.51); Absolute Neutrophil Count 4.5 X10^3/uL (2.0-7.7); Basophil# 0.05 X10^3/uL; Basophil% 0.7 % (0-1); Eosinophil# 0.08 X10^3/uL; Eosinophils% 1.1 % (0-5); Hematocrit 40.3 % (37-47); Hemoglobin 12.9 g/dL (12.0-15.0); Lymphocyte # 2.48 X10^3/ul (0.83-4.51); Lymphocyte % 32.7 % (19-41); Mean Corpuscular Volume 81.1 fL (81-99); Mean Platelet Vol. 10.9 fl (6.2-12.0); Monocyte# 0.43 X10^3/uL; Monocyte% 5.7 % (0-10); NRBC Flagged by Analyzer 0 % (0-5); Neutrophil # 4.51 X10^3/uL (2.7-7.7); Neutrophil % 59.4 % (47-70); Platelet Count 233 K/mm3 (150-450); RBC Distribution Width CV 16.8 % (11.6-14.6); RBC Distribution Width SD 49.5 fl (35.1-43.9); Red Blood Count 4.97 M/mm3 (4.2-5.4); White Blood Count 7.6 K/mm3 (4.4-11.0)
[2024-03-25 23:13] VITALS: BP 120/80; PULSE 78; RESP 14; O2SAT 95
[2024-03-25 23:16] LABS: Alcohol, Blood (Medical)-Serum < 3.0 mg/dL
[2024-03-25 23:23] LABS: Anion Gap 6 (5-15); BUN 7 mg/dL (7-18); Chloride 105 mmol/L (98-107); Creatinine, Serum 0.77 mg/dL (0.55-1.02); EST Glomerular Filtration Rate 83 mL/min (>60); Est Glom Filt Rate - Afr Amer 100 mL/min (>60); Estimated Creatinine Clearance 97.33 ml/min; Glucose 100 mg/dL (74-106); Potassium 2.8 mmol/L (3.5-5.1); Sodium Level 138 mmol/L (136-145); Troponin-I HS (w/2H Reflex) 4 pg/mL (3.0-54.0)
[2024-03-25 23:31] LABS: Amphetamine Urine VISTA NEGATIVE (<1000 ng/mL); Barbiturate Urine VISTA NEGATIVE (< 200 ng/mL); Benzodiazepine Urine VISTA NEGATIVE (< 200 ng/mL); Cocaine Urine VISTA NEGATIVE (< 300 ng/mL); Ecstacy Urine VISTA NEGATIVE (< 500 ng/mL); Methadone Urine VISTA NEGATIVE (< 300 ng/mL); PCP Urine VISTA NEGATIVE (< 25 ng/mL); THC Urine VISTA POSITIVE (< 50 ng/mL); Vista UDS pH Range 5
[2024-03-26] VITALS: BP 116/60; PULSE 62; RESP 12; O2SAT 98
[2024-03-26] MEDS: Potassium Chloride Oral Tablet 20 MEQ 40 MEQ PO (00:16)
[2024-03-26 00:52] LABS: Reflex Troponin-HS? (from REC) Y
[2024-03-26 01:00] VITALS: BP 127/89; PULSE 73; RESP 18; O2SAT 98
[2024-03-26 01:54] LABS: Troponin-I HS 4 pg/mL (3.0-54.0)
[2024-03-26 02:00] VITALS: BP 127/89; PULSE 68; RESP 18; O2SAT 98
[2024-03-26 02:31] VITALS: BP 123/89; PULSE 75; RESP 18; TEMP 36.6; O2SAT 98
== END 2024-03-26 02:37 | disposition home or self-care (01) ==
PROVIDERS: Emergency Provider Emergency Medicine; PCP Family Medicine; Visit Provider Emergency Medicine
DX: R45.851 Suicidal ideations (principal); F32.A Depression, unspecified; E87.6 Hypokalemia; I10 Essential (primary) hypertension; F17.210 Nicotine dependence, cigarettes, uncomplicated; Z79.899 Other long term (current) drug therapy
CPT/HCPCS: 36415; 80048; 80307; 82077; 84484; 85025; 93005; 99285

== ENCOUNTER 2024-04-22 12:30 | Emergency (ER) | payer BC, SELFPAY ==
[2024-04-22 12:31] VITALS: BP 111/92; PULSE 74; RESP 18; TEMP 35.6; O2SAT 100; BMI 36.3
--- NOTE | 2024-04-22 13:15 | EDS_ITS ---
HPI <REGIS Frye - Last Filed: 04/22/24 19:53> History of Present Illness Chief Complaint: Lower Extremity Injury Narrative Narrative: Patient presenting today with pain to her left lateral thigh that radiates down to her left lateral barrera that she has had over the past 5 days. She reports that her pain started Tuesday evening. While at work on Tuesday, she had to go up and down several flights of stairs about 6 different times. She reports that it is not typical for her to do this much walking up stairs. Later that evening is when her pain started. She denies any injury to her left lower extremity or hip. She has been taking ibuprofen and naproxen with minimal relief of her pain. [facility] <REGIS Frye - Last Filed: 04/22/24 19:53> [facility] Medical History Marijuana use Obesity Snoring Anxiety Depression Substance abuse Nicotine dependence Essential (primary) hypertension Gastroesophageal reflux disease without esophagitis Hemochromatosis Obesity (BMI 30-39.9) Medical History no medical history Home Medications ?Medication ?Instructions ?Recorded ?Last Taken ?Type folic acid 1 mg tablet 1 mg PO DAILY@0800 supplemen t 08/04/17 08/13/20 06:00 History omeprazole 20 mg capsule,delayed 20 mg PO DAILY acid r eflex 08/04/17 08/13/20 06:00 History release escitalopram oxalate 10 mg tablet 10 mg PO DAILY 08/1308/13/20 06:00 History nitroglycerin 0.4 mg sublingual 0.4 mg sublingual Q5M PRN chest 08/14/20 Unknown Rx tablet pain #30 tabs lisinopril 10 mg tablet 10 mg PO DAILY BP #90 tabs 1 05/11/20 Unknown Rx Adacel(Tdap Adolesn/Adult)(PF) 0.5 ml IM ONCE #0.5 mL 08/03/22 Unknown Clinic 2Lf-(2.5-5-3-5mcg)-5 Lf/0.5 mL IM susp (diph,pertuss(acel),tet vac(PF)) cyclobenzaprine 10 mg tablet 10 mg PO TID PRN Muscle S pasm #15 12/04/22 Unknown Rx TABLETS ibuprofen 600 mg tablet 600 mg PO Q8H PRN PRN pain # 20 12/04/22 Unknown Rx TABLETS albuterol sulfate 90 mcg/actuation inhalation 03/25/24 Unknown History aerosol inhaler hydrocodone-acetaminophen 5-325mg 1 tab PO Q4H PRN PRN Pain 3 days 04/22/24 Unknown Rx 5mg-325mg #10 TABLETS Allergy/AdvReac Type Severity Reaction Status Date / Time isosorbide AdvReac Intermediate severe Verified 04/22/24 12:30 headache Family History Father Hemochromatosis Hypertension Heart disease CAD (coronary artery disease), Onset Age: 40 CABG Mother Hypertension Aunt Hemochromatosis Uncle Hemochromatosis Other Myocardial infarction Surgical History PORT PLACEMENT History of tubal ligation History of tonsillectomy Surgical History no surgical history Social History Smoking Status: Light Smoker (<10/day) substance use type: marijuana ROS <REGIS Frye - Last Filed: 04/22/24 19:53> ROS ED Constitutional Constitutional ED: Denies chills or fever(s) Cardiovascular Cardiovascular: Denies chest pain Respiratory/Chest Respiratory/Chest: Denies dyspnea Musculoskeletal Musculoskeletal: Reports myalgias Integumentary Denies Abrasions or rash Neurologic Neurologic: Denies paresthesias or weakness EXAM <REGIS Frye - Last Filed: 04/22/24 19:53> Physical Exam Const Vital Signs: 04/22/24 12:31 Temperature 96.1 F L Temperature Source Temporal Pulse Rate 74 Respiratory Rate 18 Blood Pressure 111/92 H Blood Pressure Mean 98 Pulse Ox 100 Oxygen Delivery Method Room Air Positive well nourished, well developed and no apparent distress General Appearance ED: well developed HEENT Reports normocephalic and head/scalp atraumatic Mouth ED: Yes moist mucous membranes normal Eyes PERRL and EOMs intact bilaterally Neck full ROM and supple Chest Wall inspection of chest normal Resp normal respiratory effort and clear to auscultation bilaterally Cardio regular rate and regular rhythm GI soft to palpation, non-tender, non-distended and no masses Back/Spine normal ROM and normal to inspection Extremity normal to inspection and full ROM Extremity Narrative: No pain to palpation to the left greater trochanter, full range of motion to the left hip, negative logroll on the left, no pain to palpation to the left knee with full range of motion to the left knee. Tenderness along the left lateral quadricep muscles. Left DP pulse 2+, good cap refill, sensation intact. No rash, warmth, erythema to the left lower extremity or left groin. Negative Homans' sign on the left, no palpable cord, no asymmetric edema to the lower extremities. Neuro oriented x3, CN's II-XII intact bilaterally, moves all extremities, no focal motor deficits and no sensory deficits noted Sensorium / Orientation: awake and alert Psych mental status grossly normal and thought process normal Skin no rashes or lesions noted and no wounds <Dr. Gage Farmer MD - Last Filed: 04/22/24 13:38> Physical Exam Const Vital Signs: 04/22/24 12:31 Temperature 96.1 F L Temperature Source Temporal Pulse Rate 74 Respiratory Rate 18 Blood Pressure 111/92 H Blood Pressure Mean 98 Pulse Ox 100 Oxygen Delivery Method Room Air MDM <REGIS Frye - Last Filed: 04/22/24 19:53> [facility] Narrative Medical decision making narrative: Patient presenting today with pain to her left lateral thigh that radiates down the left lateral barrera. Pain started a few hours after she had to walk up and down several stairs at work on Tuesday. She denies any direct injury to her left leg. She does not have any clinical signs of DVT. There is full range of motion to her left hip and knee. No overlying rash or signs of infection. Her leg is neurovascularly intact. She does have reproducible tenderness to the lateral aspect of her left thigh consistent with a muscle strain. X-ray of the left hip and femur obtained and are negative for fracture or acute findings, she was given a [place] here for pain. Her examination is consistent with muscle s train. I will give her a short course of [place] for home but encouraged anti- inflammatories, rest, and ice. Recommend she follow-up with her PCP and patient discharged home in stable condition. I have personally performed a face to face assessment of the patient and have reviewed the KENDALL Note. I performed a substantive portion of the visit including all aspects of the following. My morales findings include: History is 53-year-old female complaining of atraumatic left thigh pain. Denies any fall injury or trauma. No fever or chills. No redness or swelling. No prior history. She is never had surgery on his leg. States she is done increased walking at work and walking on steps initially thought she might just injured the muscle. She is able to walk it does not particularly make the pain worse. She has tried Tylenol Motrin without any significant relief. States she has never had anything like this before. Exam is [well-appearing 53-year-old female. Vital signs stable afebrile. No distress. Lying in bed. H EENT exam pupils round react to light. Mytrex membranes. Neck nontender no lymphadenopathy. Back nontender. She has mild tenderness of her left SI joint. But not really straight leg raise. Lungs clear. Heart regular rhythm rate about 70 no murmur. Chest wall ribs nontender. Abdomen soft nontender. Hips and groin nontender no inguinal lymphadenopathy. I exposed her left leg there is no redness or discoloration of skin. No mottling or bruising. No rash. She has full flexion extension of left hip and knee. Normal dorsi plantarflexion. Equal symmetrical DP pulses. Equal symmetrical dorsi plantarflexion. The leg looks normal. There is no swelling or discoloration. There is no calf pain or tenderness. She has reproducible discomfort in her left thigh. Skin is not warm to the touch.] Medical Decision Making [53-year-old with atraumatic left thigh pain. X-rays being obtained.] Other additions or changes: [None] Radiography X-Ray: Read by ED Physician Diagnostic Testing: Clinical Impression(s) from Imaging Studies Pelvis X-Ray 04/22/24 13:35 IMPRESSION: NEGATIVE PELVIS Reading Location: [facility] Femur X-Ray 04/22/24 13:45 IMPRESSION: No acute radiographic process Reading Location: [facility] <Dr. Gage Farmer MD - Last Filed: 04/22/24 13:38> [facility] MDM Narrative Medical decision making narrative: I have personally performed a face to face assessment of the patient and have reviewed the KENDALL Note. I performed a substantive portion of the visit including all aspects of the following. My morales findings include: History is 53-year-old female complaining of atraumatic left thigh pain. Denies any fall injury or trauma. No fever or chills. No redness or swelling. No prior history. She is never had surgery on his leg. States she is done increased walking at work and walking on steps initially thought she might just injured the muscle. She is able to walk it does not particularly make the pain worse. She has tried Tylenol Motrin without any significant relief. States she has never had anything like this before. Exam is [well-appearing 53-year-old female. Vital signs stable afebrile. No distress. Lying in bed. H EENT exam pupils round react to light. Mytrex membranes. Neck nontender no lymphadenopathy. Back nontender. She has mild tenderness of her left SI joint. But not really straight leg raise. Lungs clear. Heart regular rhythm rate about 70 no murmur. Chest wall ribs nontender. Abdomen soft nontender. Hips and groin nontender no inguinal lymphadenopathy. I exposed her left leg there is no redness or discoloration of skin. No mottling or bruising. No rash. She has full flexion extension of left hip and knee. Normal dorsi plantarflexion. Equal symmetrical DP pulses. Equal symmetrical dorsi plantarflexion. The leg looks normal. There is no swelling or discoloration. There is no calf pain or tenderness. She has reproducible discomfort in her left thigh. Skin is not warm to the touch.] Medical Decision Making [53-year-old with atraumatic left thigh pain. X-rays being obtained.] Other additions or changes: [None] History & Record Review Discussion w/independent historian: Patient Radiography Diagnostic Testing: Clinical Impression(s) from Imaging Studies Pelvis X-Ray 04/22/24 13:35 IMPRESSION: NEGATIVE PELVIS Reading Location: [facility] Femur X-Ray 04/22/24 13:45 IMPRESSION: No acute radiographic process Reading Location: [facility] Discharge Plan Triage Chief Complaint: Lower Extremity Injury ED Midlevel Provider: Ana Maria Lind ED Provider: Gage Farmer Dx/Rx/DC Orders Clinical Impression: Muscle strain, Left leg pain Instructions: Self-Care for Strains and Sprains Prescriptions: New hydrocodone-acetaminophen 5-325 mg tablet 1 tab PO Q4H PRN PRN (Reason: Pain) 3 Days Qty: 10 0RF No Action lisinopril 10 mg tablet 10 mg PO DAILY Qty: 90 3RF diph,pertuss(acel),tet vac(PF) [Adacel(Tdap Adolesn/Adult)(PF)] 2 Lf-(2.5-5-3-5 mcg)-5Lf/0.5 mL suspension 0.5 ml IM ONCE Qty: 0.5 0RF omeprazole 20 MG capsule 20 mg PO DAILY folic acid 1 MG tablet 1 mg PO DAILY@0800 escitalopram oxalate 10 mg tablet 10 mg PO DAILY Patient Comments: TAKE 1 TABLET BY MOUTH EVERY DAY nitroglycerin 0.4 mg tablet, sublingual 0.4 mg sublingual Q5M PRN (Reason: chest pain) Qty: 30 0RF Rx Instructions: do not exceed 3 doses per episode cyclobenzaprine [cyclobenzaprine] 10 mg tablet 10 mg PO TID PRN (Reason: Muscle Spasm) Qty: 15 0RF ibuprofen 600 mg tablet 600 mg PO Q8H PRN PRN (Reason: pain) Qty: 20 0RF albuterol sulfate 90 mcg/actuation HFA aerosol inhaler inhalation Primary Care Provider: Cam Crane Referrals: Cam Crane MD [Primary Care Provider] - 5-7 Days Activity Restrictions/Additional Instructions: You can also take ibuprofen for your pain. Return for any worsening symptoms. Print Language: Russian Disposition Disposition: Home, Self Care Discharge Date/Time: 04/22/24 14:36
--- NOTE | 2024-04-22 13:35 | RAD_ITS ---
PROCEDURE: PELVIS 1 OR 2 VIEWS REASON FOR EXAM: Pain TECHNIQUE: AP view of the pelvis COMPARISON: None FINDINGS: No fracture. No suspicious bone lesion. Normal alignment at the hips and sacroiliac joints. Degenerative changes of the bilateral hips. Soft tissues are unremarkable. RAD/Pelvis 1 or 2 Views IMPRESSION: NEGATIVE PELVIS Reading Location: [facility]
[2024-04-22] MEDS: HYDROcodone Bitartrate/Apap 5/325 Tablet PO (13:42)
--- NOTE | 2024-04-22 13:45 | RAD_ITS ---
PROCEDURE: FEMUR MIN 2 VIEWS REASON FOR EXAM: Pain TECHNIQUE: 2 view(s) left femur COMPARISON: None. FINDINGS: No fracture. No suspicious bone lesion. Normal alignment at the hip and knee. Soft tissues are unremarkable. RAD/Femur Min 2 Views IMPRESSION: No acute radiographic process Reading Location: [facility]
== END 2024-04-22 14:36 | disposition home or self-care (01) ==
PROVIDERS: Emergency Provider Emergency Medicine; PCP Family Medicine; Visit Provider Emergency Medicine
DX: S76.812A Strain of other specified muscles, fascia and tendons at thigh level, left thigh, initial encounter (principal); X58.XXXA Exposure to other specified factors, initial encounter; I10 Essential (primary) hypertension; F17.200 Nicotine dependence, unspecified, uncomplicated; Z79.899 Other long term (current) drug therapy
CPT/HCPCS: 72170; 73552; 99282

== ENCOUNTER 2025-01-08 15:09 | Emergency (ER) | payer BC, SELFPAY ==
[2025-01-08 15:09] VITALS: BP 122/82; PULSE 77; RESP 16; TEMP 37; O2SAT 99; BMI 28.9
--- NOTE | 2025-01-08 15:37 | RAD_ITS ---
PROCEDURE: RAD/Humerus min 2 Views
--- NOTE | 2025-01-08 15:37 | RAD_ITS ---
PROCEDURE: RAD/Sternum min 2 Views
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
--- NOTE | 2025-01-08 15:46 | RAD_ITS ---
PROCEDURE: RAD/Humerus min 2 Views
[2025-01-08] MEDS: Orphenadrine 100 MG Tablet PO (17:09)
[2025-01-08 17:10] VITALS: BP 117/84; PULSE 75; RESP 16; TEMP 37; O2SAT 98
== END 2025-01-08 17:12 | disposition home or self-care (01) ==
PROVIDERS: Emergency Provider Emergency Medicine; PCP Family Medicine; Visit Provider Emergency Medicine
DX: S29.012A Strain of muscle and tendon of back wall of thorax, initial encounter (principal); S20.219A Contusion of unspecified front wall of thorax, initial encounter; S40.022A Contusion of left upper arm, initial encounter; I10 Essential (primary) hypertension; M25.511 Pain in right shoulder; M25.512 Pain in left shoulder; V47.0XXA Car driver injured in collision with fixed or stationary object in nontraffic accident, initial encounter; Y92.89 Other specified places as the place of occurrence of the external cause; K21.9 Gastro-esophageal reflux disease without esophagitis; Z79.899 Other long term (current) drug therapy; F41.9 Anxiety disorder, unspecified; F32.A Depression, unspecified; Z98.51 Tubal ligation status
CPT/HCPCS: 71120; 73060; 99283